=== PATIENT | male | born 1975 | race Caucasian/White ===

== ENCOUNTER 2016-06-07 02:44 | Emergency (ER) | payer MEDICAID ==
[2016-06-07] MEDS ORDERED: FAMOTIDINE INJ/PF 20 MG/2 ML SDV IV ONE (03:02)
[2016-06-07] MEDS ORDERED: DIPHENHYDRAMINE HCL 50 MG/ML VIAL IV ONE (03:02)
[2016-06-07] MEDS ORDERED: METHYLPREDNISOLONE INJ 125 MG/2 ML SDV IV ONE (03:02)
[2016-06-07] MEDS ORDERED: NORMAL SALINE 1000 ML 1,000 ML IV ONE ×3 (03:02→05:52)
[2016-06-07] MEDS ORDERED: ALBUTEROL SULFATE 0.083% NEB 2.5 MG/3 ML AMPUL NEB ONE (03:02)
[2016-06-07] MEDS ORDERED: EPINEPHRINE INJ/PF 1 MG/1 ML AMPULE IM ONE (03:03)
--- NOTE | 2016-06-07 03:08 | ER Document Report ---
ED Allergic Reaction - General Chief Complaint: Itching Stated Complaint: POSSIBLE ALLERGIC REACTION Mode of Arrival: Medic Information source: Patient Notes: Patient presents complaining of allergic reaction to unknown substance. Patient states that his symptoms started yesterday and gradually worsened this morning. Patient states that around 2:30 that he became very itchy, felt dizzy and then fell. Patient denies any loss of consciousness or chest pain. Patient does complain of some shortness of breath. Patient also reports some right upper lip swelling. TRAVEL OUTSIDE OF THE [place] IN LAST 30 DAYS: No - HPI Onset: Yesterday Onset/Duration: Worse Quality of pain: No pain Identified cause: No Skin rash / itching: Diffuse, "Hives" Swelling: Face, Lip(s) Associated symptoms: Dizziness Similar symptoms previously: No Recently seen / treated by doctor: No - Related Data Allergies/Adverse Reactions: No Known Allergies Allergy (Unverified 04/29/15 13:38) Past Medical History - General Information source: Patient - Social History Smoking Status: Never Smoker Frequency of alcohol use: None Drug Abuse: None Occupation: cable wirer Family History: Reviewed & Not Pertinent - Medical History Medical History: Negative - Past Medical History Cardiac Medical History: Denies: Hx Coronary Artery Disease, Hx Heart Attack, Hx Hypertension Pulmonary Medical History: Denies: Hx Asthma, Hx Bronchitis, Hx COPD, Hx Pneumonia Neurological Medical History: Denies: Hx Cerebrovascular Accident, Hx Seizures Endocrine Medical History: Denies: Hx Diabetes Mellitus Type 2 GI Medical History: Reports: Hx Colonoscopy. Denies: Hx Crohn's Disease Musculoskeltal Medical History: Denies Hx Arthritis Past Surgical History: Reports: Other - Rectal fistula repair - Immunizations Hx Diphtheria, Pertussis, Tetanus Vaccination: No Review of Systems - Review of Systems Constitutional: No symptoms reported. denies: Fever, Recent illness EENT: Other - Right upper lip swelling. denies: Difficulty swallowing, Throat swelling Cardiovascular: Dizziness. denies: Chest pain, Palpitations Respiratory: Short of breath. denies: Cough Gastrointestinal: No symptoms reported. denies: Nausea, Vomiting Genitourinary: No symptoms reported Male Genitourinary: No symptoms reported Musculoskeletal: No symptoms reported Skin: Rash Hematologic/Lymphatic: No symptoms reported Neurological/Psychological: No symptoms reported Physical Exam - Vital signs Vitals: Temp Pulse Resp BP Pulse Ox 98.0 F 73 18 112/71 97 06/07/16 02:55 06/07/16 02:55 06/07/16 02:55 06/07/16 02:55 06/07/16 02:55 - General General appearance: Appears well, Alert In distress: None - HEENT Head: Normocephalic Eyes: Normal Nasal: Normal Mouth/Lips: Other - Subtle swelling to right side of the upper lip Mucous membranes: Normal Pharynx: Normal. No: Tonsillar hypertrophy, Uvular edema, Potential airway comprom. Neck: Normal, Supple. No: Lymphadenopathy - Respiratory Respiratory status: No respiratory distress Chest status: Nontender Breath sounds: Normal. No: Rales, Rhonchi, Stridor, Wheezing Chest palpation: Normal - Cardiovascular Rhythm: Regular Heart sounds: S1 appreciated, S2 appreciated Murmur: No - Abdominal Inspection: Normal Distension: No distension Tenderness: Nontender Organomegaly: No organomegaly - Back Back: Normal, Nontender - Extremities General upper extremity: Normal inspection, Normal ROM General lower extremity: Normal inspection, Normal ROM - Neurological Neuro grossly intact: Yes Cognition: Normal Orientation: AAOx4 Octavio Coma Scale Eye Opening: Spontaneous [place] Coma Scale Verbal: Oriented [place] Coma Scale Motor: Obeys Commands [place] Coma Scale Total: 15 - Psychological Associated symptoms: Normal affect, Normal mood - Skin Skin Temperature: Warm Skin Moisture: Dry Skin irregularity: Rash Location of irregularity: Generalized Character of irregularity: Urticarial Course - Re-evaluation Re-evalutation: 06/07/16 03:55 RN states that prior to meds being given, patient started to complain of abdominal tenderness. Patient presently complains of abdominal pain with nausea , patient retching. Dr Chambers consulted and to bedside for examination. Lab tests ordered including UDS and EtOH. 06/07/16 04:00 to bedside for abdominal examination. Patient's heart rate continues irregular ranging from the 50s into the 80s with occasional PVCs. 06/07/16 04:33 Patient reports that abdominal cramping have resolved as well as nausea and vomiting. Patient states he feels much better. Heart rate in the 90s at this time. Patient resting on his side attempting to sleep. Patient hypotensive, additional IV fluids ordered. Swelling to lip resolved. 06/07/16 04:53 Patient heart rate in the 80s, patient continues hypotensive, second liter of IV fluids infusing repeat EKG performed. Nurse at bedside to obtain second IV site as well as to draw his labs. Dr. Chambers advised that patient status. Patient currently denies any complaints, hives resolved no facial swelling. 06/07/16 05:57 Patient sleeping, arouses easily to voice. Patient denies any complaints at present. Patient's pressure 106/59. Third liter of IV fluids infusing. Consulted again with Dr. Chambers, who returned to bedside for repeat examination, no additional testing advised this time. 06/07/16 07:21 Bedside report and handoff given to Jose JOHNSON, patient currently denies any symptoms, states he feels much better. - Vital Signs Vital signs: Temp Pulse Resp BP Pulse Ox 98.0 F 73 21 H 105/58 L 94 06/07/16 02:55 06/07/16 02:55 06/07/16 06:11 06/07/16 06:11 06/07/16 06:11 - Laboratory Result Diagrams: 06/07/16 04:58 06/07/16 04:58 Laboratory results interpreted by me: 06/07/16 06/07/16 06/07/16 04:58 04:58 06:10 WBC 23.8 H Seg Neuts % (Manual) 79 H Lymphocytes % (Manual) 11 L Abs Neuts (Manual) 20.0 H Potassium 3.3 L BUN 24 H Glucose 201 H Urine Protein 100 H Discharge - Discharge Prescriptions: Epinephrine [Epipen 2-Arian] 0.3 mg IM ASDIR PRN #1 unit PRN Reason: Prednisone [Deltasone 20 mg Tablet] 3 tab PO DAILY 4 Days
[2016-06-07] MEDS ORDERED: ONDANSETRON HCL INJ/PF 4 MG/2 ML SDV IV ONE (03:49)
[2016-06-07] MEDS ORDERED: ONDANSETRON HCL INJ/PF 4 MG/2 ML SDV ONE (03:52)
[2016-06-07 05:15] LABS: HEMATOCRIT 41.8 % (37.9-51.0); HEMOGLOBIN 14.1 g/dL (13.5-17.0); HGB HCT DIFFERENCE 0.5; MEAN CORPUSCULAR HEMOGLOBIN 30.5 pg (27.0-33.4); MEAN CORPUSCULAR HGB CONC 33.7 g/dL (32.0-36.0); MEAN CORPUSCULAR VOLUME 90 fl (80-97); RED BLOOD COUNT 4.62 10^6/uL (4.35-5.55); RED CELL DISTRIBUTION WIDTH 12.8 % (11.5-14.0); WHITE BLOOD COUNT 23.8 10^3/uL (4.0-10.5)
[2016-06-07 05:35] LABS: ALANINE AMINOTRANSFERASE 43 U/L (21-72); ALBUMIN 3.7 g/dL (3.5-5.0); ALKALINE PHOSPHATASE 63 U/L (38-126); ANION GAP 14 (5-19); ASPARTATE AMINO TRANSFERASE 25 U/L (17-59); BILIRUBIN,DIRECT 0.2 mg/dL (0.0-0.4); BILIRUBIN,TOTAL 0.9 mg/dL (0.2-1.3); BLOOD UREA NITROGEN 24 mg/dL (7-20); CALCIUM 8.5 mg/dL (8.4-10.2); CARBON DIOXIDE 22 mmol/L (22-30); CHLORIDE 106 mmol/L (98-107); CREATINE KINASE 81 U/L (55-170); CREATININE RESULT 0.89 mg/dL (0.52-1.25); GLUCOSE 201 mg/dL (75-110); LIPASE 89.8 U/L (23-300); POTASSIUM 3.3 mmol/L (3.6-5.0); SODIUM 141.6 mmol/L (137-145); TOTAL PROTEIN 6.5 g/dL (6.3-8.2)
[2016-06-07 05:40] LABS: ALCOHOL < 10 mg/dL (NONE DETECTED)
[2016-06-07 05:41] LABS: BAND NEUTROPHILS % (MANUAL) 5 % (3-5); BASOPHILS % (MANUAL) 0 % (0-2); EOSINOPHILS % (MANUAL) 0 % (0-6); LYMPHOCYTES % (MANUAL) 11 % (13-45); TOTAL CELLS COUNTED 100
[2016-06-07 05:42] LABS: POIKILOCYTOSIS SLIGHT
[2016-06-07 05:43] LABS: PLATELET CLUMPS PRESENT
[2016-06-07 05:44] LABS: CREATINE KINASE MB 0.96 ng/mL (<4.55)
[2016-06-07 05:49] LABS: TROPONIN I < 0.012 ng/mL
[2016-06-07 06:38] LABS: URINE BARBITURATES SCREEN NEGATIVE; URINE METHADONE SCREEN NEGATIVE; URINE OPIATES LOW NEGATIVE; URINE PHENCYCLIDINE SCREEN NEGATIVE
[2016-06-07 06:43] LABS: APPEARANCE,URINE SLIGHTLY-CLOUDY; BILIRUBIN,URINE NEGATIVE (NEGATIVE); GLUCOSE, URINE NEGATIVE (NEGATIVE); KETONES,URINE NEGATIVE (NEGATIVE); LEUKOCYTE ESTERASE,URINE NEGATIVE (NEGATIVE); NITRITE,URINE NEGATIVE (NEGATIVE); PROTEIN,URINE 100 mg/dL (NEGATIVE); URINE SPECIFIC GRAVITY 1.032; UROBILINOGEN,URINE NEGATIVE mg/dL (<2.0)
[2016-06-07 08:32] LABS: HEMATOCRIT 39.8 % (37.9-51.0); HEMOGLOBIN 13.6 g/dL (13.5-17.0); MEAN CORPUSCULAR HEMOGLOBIN 30.7 pg (27.0-33.4); MEAN CORPUSCULAR HGB CONC 34.1 g/dL (32.0-36.0); MEAN CORPUSCULAR VOLUME 90 fl (80-97); RED BLOOD COUNT 4.43 10^6/uL (4.35-5.55); RED CELL DISTRIBUTION WIDTH 12.9 % (11.5-14.0)
[2016-06-07 08:59] LABS: BASOPHILS % (MANUAL) 0 % (0-2); EOSINOPHILS % (MANUAL) 0 % (0-6); LYMPHOCYTES % (MANUAL) 5 % (13-45); RBC MORPHOLOGY COMMENT NORMO-CYTIC/CHROMIC; TOTAL CELLS COUNTED 100
[2016-06-07 10:20] VITALS: BP 117/97
--- NOTE | 2016-06-07 10:22 | EKG REPORT ---
SEVERITY:- ABNORMAL ECG - SINUS BRADYCARDIA MULTIPLE ATRIAL PREMATURE COMPLEXES : Confirmed by: Amrik Mariee 07-Jun-2016 10:22:36
--- NOTE | 2016-06-07 10:22 | EKG REPORT ---
SEVERITY:- NORMAL ECG - SINUS RHYTHM : Confirmed by: Amrik Mariee 07-Jun-2016 10:22:29
== END 2016-06-07 10:23 | disposition home or self-care (01) ==
LOC: ER 02:44
DX: E86.0 Dehydration (principal); T78.40XA Allergy, unspecified, initial encounter; R06.02 Shortness of breath; R22.0 Localized swelling, mass and lump, head
CPT/HCPCS: 93005; 94640; 99284; 96372; 96361; 96374; 96375; 36415; 82553; 80307 ×2; 82550; 83690; 85025; 80053; 81001; 84484; 71010; 93010; J1200; J0171; J2930; J2405; J7030; S0028

== ENCOUNTER 2016-08-10 21:23 | Emergency (ER) | payer MEDICAID ==
[2016-08-10 22:26] LABS: ABSOLUTE BASOPHILS # (AUTO) 0.1 10^3/uL (0.0-0.2); ABSOLUTE EOSINOPHILS # (AUTO) 0.3 10^3/uL (0.0-0.6); ABSOLUTE LYMPHOCYTES (AUTO) 2.7 10^3/uL (0.5-4.7); ABSOLUTE MONOCYTES (AUTO) 1.1 10^3/uL (0.1-1.4); ABSOLUTE NEUT (AUTO) 3.6 10^3/uL (1.7-8.2); BASOPHILS % (AUTO) 0.8 % (0-2); EOSINOPHILS % (AUTO) 3.6 % (0-6); HEMATOCRIT 41.5 % (37.9-51.0); HEMOGLOBIN 13.8 g/dL (13.5-17.0); HGB HCT DIFFERENCE -0.1; LYMPHOCYTES % (AUTO) 34.5 % (13-45); MEAN CORPUSCULAR HEMOGLOBIN 30.2 pg (27.0-33.4); MEAN CORPUSCULAR HGB CONC 33.3 g/dL (32.0-36.0); MEAN CORPUSCULAR VOLUME 91 fl (80-97); MONOCYTES % (AUTO) 14.2 % (3-13); RED BLOOD COUNT 4.58 10^6/uL (4.35-5.55); RED CELL DISTRIBUTION WIDTH 12.3 % (11.5-14.0); SEGMENTED NEUTROPHILS % (AUTO) 46.9 % (42-78); WHITE BLOOD COUNT 7.8 10^3/uL (4.0-10.5)
[2016-08-10 22:44] LABS: ALANINE AMINOTRANSFERASE 67 U/L (21-72); ALBUMIN 4.2 g/dL (3.5-5.0); ALKALINE PHOSPHATASE 83 U/L (38-126); ANION GAP 14 (5-19); ASPARTATE AMINO TRANSFERASE 52 U/L (17-59); BILIRUBIN,DIRECT 0.3 mg/dL (0.0-0.4); BLOOD UREA NITROGEN 17 mg/dL (7-20); CALCIUM 9.2 mg/dL (8.4-10.2); CARBON DIOXIDE 26 mmol/L (22-30); CHLORIDE 104 mmol/L (98-107); CREATININE RESULT 1.08 mg/dL (0.52-1.25); GLUCOSE 95 mg/dL (75-110); LIPASE 132.9 U/L (23-300); POTASSIUM 3.6 mmol/L (3.6-5.0); SODIUM 144.2 mmol/L (137-145); TOTAL PROTEIN 7.8 g/dL (6.3-8.2)
[2016-08-10] MEDS ORDERED: SIMETHICONE 80 MG TAB.CHEW PO ONE (22:47)
[2016-08-10] MEDS ORDERED: NORMAL SALINE 1000 ML 1,000 ML IV ONE (22:47)
[2016-08-10] MEDS ORDERED: MORPHINE SULFATE 10 MG/ML INJ IV PRN (22:47)
--- NOTE | 2016-08-10 22:56 | RADIOLOGY REPORT (SQ) ---
EXAM DESCRIPTION: KUB/ABDOMEN (SINGLE VIEW) COMPLETED DATE/TIME: 08/10/2016 10:48 pm REASON FOR STUDY: eval sbo COMPARISON: None. NUMBER OF VIEWS: One view. TECHNIQUE: Supine radiographic image of the abdomen acquired. LIMITATIONS: None. FINDINGS: BOWEL GAS PATTERN: Normal bowel gas pattern. No dilated loops. Moderate colonic stool bur den. CALCIFICATIONS: No suspicious calcifications. SOFT TISSUES: No gross mass or suggestion of organomegaly. HARDWARE: None in the abdomen. BONES: No acute fracture. No worrisome bone lesions. OTHER: No other significant finding. IMPRESSION: NO RADIOGRAPHIC EVIDENCE FOR ACUTE ABDOMINAL DISEASE. Moderate colonic stool burden TECHNICAL DOCUMENTATION: JOB ID: [id number] [employer]- All Rights Reserved
--- NOTE | 2016-08-11 00:07 | ER Document Report ---
ED General - General Chief Complaint: Abdominal Pain Stated Complaint: DIARRHEA Time Seen by Provider: 08/10/16 21:41 Notes: Patient is a 41-year-old male with past medical history of a rectocutaneous fistula without history of Crohn's who presents with 2 days of abdominal bloating and diarrhea. States that the diarrhea has stopped it. Took Imodium regularly over the last 2 days but now he feels extremely distended, like he needs to pass gas or have a bowel movement. Does describe a constant, pressure- like pain. Notes that he has continued to pass gas at home and that this does improve the bloating but then it recurs. Nothing worsens the pain. Notes nausea without vomiting. No history of similar symptoms in the past. Denies any history of abdominal surgeries or bowel obstructions. He denies any chest pain or shortness of breath. No fever or constitutional symptoms. TRAVEL OUTSIDE OF THE [place] IN LAST 30 DAYS: No - Related Data Allergies/Adverse Reactions: No Known Allergies Allergy (Unverified 04/29/15 13:38) Past Medical History - General Information source: Patient - Social History Smoking Status: Never Smoker Frequency of alcohol use: None Drug Abuse: None Lives with: Family Family History: Reviewed & Not Pertinent Patient has suicidal ideation: No Patient has homicidal ideation: No - Past Medical History Cardiac Medical History: Denies: Hx Coronary Artery Disease, Hx Heart Attack, Hx Hypertension Pulmonary Medical History: Denies: Hx Asthma, Hx Bronchitis, Hx COPD, Hx Pneumonia Neurological Medical History: Denies: Hx Cerebrovascular Accident, Hx Seizures Endocrine Medical History: Denies: Hx Diabetes Mellitus Type 2 Renal/ Medical History: Denies: Hx Peritoneal Dialysis GI Medical History: Reports: Hx Colonoscopy. Denies: Hx Crohn's Disease Musculoskeltal Medical History: Denies Hx Arthritis Past Surgical History: Reports: Other - Rectal fistula repair - Immunizations Hx Diphtheria, Pertussis, Tetanus Vaccination: No Review of Systems - Review of Systems Notes: Constitutional: Negative for fever. HENT: Negative for sore throat. Eyes: Negative for visual changes. Cardiovascular: Negative for chest pain. Respiratory: Negative for shortness of breath. Gastrointestinal: Positive for abdominal pain and nausea Genitourinary: Negative for dysuria. Musculoskeletal: Negative for back pain. Skin: Negative for rash. Neurological: Negative for headaches, weakness or numbness. 10 point ROS negative except as marked above and in HPI. Physical Exam - Vital signs Vitals: Temp Pulse Resp BP Pulse Ox 98.2 F 76 18 129/89 H 97 08/10/16 21:27 08/10/16 21:27 08/10/16 21:27 08/10/16 21:27 08/10/16 21:27 Interpretation: Normal Notes: PHYSICAL EXAMINATION: GENERAL: Well-appearing, well-nourished and in no acute distress. HEAD: Atraumatic, normocephalic. EYES: Pupils equal round and reactive to light, extraocular movements intact, sclera anicteric, conjunctiva are normal. ENT: nares patent, oropharynx clear without exudates. Moist mucous membranes. NECK: Normal range of motion, supple without lymphadenopathy LUNGS: Breath sounds clear to auscultation bilaterally and equal. No wheezes rales or rhonchi. HEART: Regular rate and rhythm without murmurs ABDOMEN: Soft, obese abdomen. No focal tenderness, rebound or guarding. Bowel sounds are present. EXTREMITIES: Normal range of motion, no pitting or edema. No cyanosis. NEUROLOGICAL: No focal neurological deficits. Moves all extremities spontaneously and on command. PSYCH: Normal mood, normal affect. SKIN: Warm, Dry, normal turgor, no rashes or lesions noted. Course - Re-evaluation Re-evalutation: 08/11/16 00:07 Patient presents with diffuse abdominal cramping and bloating with feeling of being in need of having a bowel movement. Patient did recently have diarrhea and was taking large quantities of loperamide. His abdominal exam is overall benign without any focal tenderness, rebound or guarding. Labs unremarkable. KUB does demonstrate significant colonic stool burden without evidence of a small bowel obstruction. I suspect patient has taken too much loperamide and now has significant rebound constipation. I do not suspect an acute bowel obstruction, mesenteric ischemia, bowel perforation, volvulus, acute biliary pathology, or acute diverticulitis or appendicitis based on exam and history. At this time will discharge with return precautions and follow-up recommendations. Verbal discharge instructions given a the bedside and opportunity for questions given. Medication warnings reviewed. Patient is in agreement with this plan and has verbalized understanding of return precautions and the need for primary care follow-up in the next 24-72 hours. - Vital Signs Vital signs: Temp Pulse Resp BP Pulse Ox 98.2 F 72 18 126/85 H 99 06/27/17 21:27 08/11/16 00:34 08/11/16 00:34 08/11/16 00:34 08/11/16 00:34 - Laboratory Result Diagrams: 08/10/16 22:10 08/10/16 22:10 Laboratory results interpreted by me: 08/10/16 22:10 Monocytes % 14.2 H - Diagnostic Test Radiology reviewed: Image reviewed, Reports reviewed Radiology results interpreted by me: 08/11/16 02:04 KUB: No evidence of obstruction. Significant colonic stool burden Discharge - Discharge Clinical Impression: Abdominal pain Qualifiers: Abdominal location: generalized Qualified Code(s): R10.84 - Generalized abdominal pain Condition: Good Disposition: HOME, SELF-CARE Additional Instructions: You have been seen in the Emergency Department (ED) for abdominal pain. Your evaluation did not identify a clear cause of your symptoms but was generally reassuring. Your x-ray does show a significant amount of constipation which may be due to recently using Imodium. For your constipation: You should take 8 caps of MiraLAX and placed in 1 liter of Gatorade. Drink one half of the solution and wait 4 hours. If you do not have a bowel movement take the remaining half of the solution. Please follow up with your doctor as soon as possible regarding today's emergent visit and the symptoms that are bothering you. Return to the ED if your abdominal pain worsens or fails to improve, you develop bloody vomiting, bloody diarrhea, you are unable to tolerate fluids due to vomiting, fever greater than 101, or other symptoms that concern you. Referrals: LETA ORTA MD [Primary Care Provider] - Follow up as needed
[2016-08-11 00:35] VITALS: BP 126/85
== END 2016-08-11 00:34 | disposition home or self-care (01) ==
LOC: ER 21:23
DX: R10.84 Generalized abdominal pain (principal); R11.0 Nausea; R19.7 Diarrhea, unspecified; R14.0 Abdominal distension (gaseous)
CPT/HCPCS: 99284; 96374; 36415; 83690; 85025; 80053; 74000; J2270; J7030

== ENCOUNTER 2017-02-08 17:55 | Emergency (ER) | payer MEDICAID ==
[2017-02-08] MEDS ORDERED: IPRATROPIUM/ALBUTEROL 0.5-2.5 MG/3 ML AMPUL NEB ONE (19:12)
[2017-02-08] MEDS ORDERED: PREDNISONE 20 MG TABLET PO ONE (19:12)
--- NOTE | 2017-02-08 19:12 | ER Document Report ---
ED Respiratory Problem - General Chief Complaint: Cough Stated Complaint: COUGH Time Seen by Provider: 02/08/17 18:55 Notes: Patient is a 41 year old male who presents to the ED complaining of a nonproductive cough and shortness of breath for three days. Admit sot wheezing, denies tobacco use, h/o asthma or COPD. Denies any fevers, chills, chest pain. TRAVEL OUTSIDE OF THE [place] IN LAST 30 DAYS: No - Related Data Allergies/Adverse Reactions: No Known Allergies Allergy (Verified 12/16/16 08:16) Past Medical History - Social History Smoking Status: Never Smoker Chew tobacco use (# tins/day): No Frequency of alcohol use: None Drug Abuse: None Family History: Reviewed & Not Pertinent Patient has suicidal ideation: No Patient has homicidal ideation: No - Past Medical History Cardiac Medical History: Denies: Hx Coronary Artery Disease, Hx Heart Attack, Hx Hypertension Pulmonary Medical History: Denies: Hx Asthma, Hx Bronchitis, Hx COPD, Hx Pneumonia Neurological Medical History: Denies: Hx Cerebrovascular Accident, Hx Seizures Endocrine Medical History: Denies: Hx Diabetes Mellitus Type 2 Renal/ Medical History: Denies: Hx Peritoneal Dialysis GI Medical History: Reports: Hx Colonoscopy. Denies: Hx Crohn's Disease Musculoskeltal Medical History: Denies Hx Arthritis Past Surgical History: Reports: Other - Rectal fistula repair - Immunizations Hx Diphtheria, Pertussis, Tetanus Vaccination: No Review of Systems - Review of Systems Constitutional: No symptoms reported Cardiovascular: No symptoms reported Respiratory: See HPI Gastrointestinal: No symptoms reported -: Yes All other systems reviewed and negative Physical Exam - Vital signs Vitals: Temp Pulse Resp BP Pulse Ox 98.7 F 91 20 122/81 95 02/08/17 18:14 02/08/17 18:14 02/08/17 18:14 02/08/17 18:14 02/08/17 18:14 - Notes Notes: PHYSICAL EXAM GENERAL: Alert, interacts well. HEAD: Normocephalic, atraumatic. EYES: Pupils equal, round, and reactive to light. Extraocular movements intact. ENT: Oral mucosa moist, tongue midline. NECK: Full range of motion. Supple. Trachea midline. LUNGS: Diffuse wheezes and rhonchi. No respiratory distress. HEART: Regular rate and rhythm. No murmurs, gallops, or rubs. EXTREMITIES: Moves all 4 extremities spontaneously. No edema, radial and dorsalis pedis pulses 2/4 bilaterally. No cyanosis. NEUROLOGICAL: Alert and oriented x4. Normal speech. PSYCH: Normal affect, normal mood. SKIN: Warm, dry, normal turgor. No rashes or lesions noted. Course - Re-evaluation Re-evalutation: 02/09/17 01:59 Patient presents with nonproductive cough likely consistent with viral bronchitis. Mild wheezing at time of presentation but vitals do not show significant hypoxemia or tachypnea. No retractions. Patient did clinically improve after receiving nebulizers here in the emergency department. Chest x- ray without evidence of an acute pneumonia. Patient able to ambulate without any respiratory distress, satting 98% on room air. Based on patient's overall reassuring assessment, I believe they are stable for outpatient management with steroids. I do not suspect an acute alternative pathology at this time based on history and exam including acute pulmonary embolus, ACS, pneumothorax, or aortic dissection. At this time will discharge with return precautions and follow-up recommendations. Verbal discharge instructions given a the bedside and opportunity for questions given. Medication warnings reviewed. Patient is in agreement with this plan and has verbalized understanding of return precautions and the need for primary care follow-up in the next 24-72 hours. - Vital Signs Vital signs: Temp Pulse Resp BP Pulse Ox 98.7 F 91 17 125/76 93 02/08/17 18:14 02/08/17 18:14 02/08/17 20:54 02/08/17 20:54 02/08/17 20:54 - Diagnostic Test Radiology reviewed: Image reviewed, Reports reviewed Discharge - Discharge Clinical Impression: Bronchitis Condition: Good Disposition: HOME, SELF-CARE Additional Instructions: Please purchase pseudophedrine which is available behind the counter in the pharmacy. BRONCHITIS: You have acute bronchitis. This disease is an infection or inflammation of the air passageways in your lungs. Symptoms usually include cough, low grade fever, shortness of breath, and wheezing. The cough usually persists for a couple of weeks. Most cases of bronchitis get better without antibiotics. We prescribe antibiotics when we believe bacteria are damaging your airways, or if there's high risk the bronchitis will worsen into pneumonia. Increase your fluid intake. A cool mist humidifier may make your lungs more comfortable. An expectorant (cough medicine that loosens phlegm) can help. If you smoke, STOP!!! Recovery from bronchitis can be somewhat slow, but you should see improvement within a day or two. Repeated episodes of bronchitis may result in lung damage -- for example, chronic bronchitis, recurrent pneumonias, or emphysema. Call the doctor if you develop increasing fever, shortness of breath, chest pain, bloody sputum, or otherwise worsen. If you have not improved at all after several days, contact the physician. BRONCHITIS WITH BRONCHOSPASM (WHEEZING): You have bronchitis with bronchospasm (wheezing). Sometimes people develop wheezing with a chest cold. This occurs either because of an underlying tendency toward asthma or because the virus itself irritates the bronchial tubes. This irritation causes cough, shortness of breath, and wheezing. Emergency treatment of bronchospasm may include adrenaline shots or bronchodilator aerosol. You may feel lightheaded and have a rapid pulse for an hour or two. Rest and get plenty of fluids. At home, we'll treat you with a bronchodilator inhaler. Corticosteroids may be required for some patients. Until you recover, avoid chemical fumes, dusts, pollens, and exercising in very cold or dry air. If you smoke, stop now! Most cases of bronchitis get better without antibiotics. We prescribe antibiotics when we believe bacteria are damaging your airways, or if there's high risk the bronchitis will worsen into pneumonia. Increase your fluid intake. A cool mist humidifier may make your lungs more comfortable. An expectorant (cough medicine that loosens phlegm) can help. Repeated episodes of bronchitis and bronchospasm may result in lung damage -- for example, chronic bronchitis, recurrent pneumonias, or emphysema. If you develop a fever, increased wheezing, chest pain, or severe shortness of breath, you should contact the doctor immediately. DECONGESTANT MEDICATION: A decongestant medicine has been prescribed. Often this medicine is combined in the same tablet with an antihistamine or expectorant. This type of medicine is helpful in treating a bad cold or sinus condition, as well as in treatment of the nasal congestion of hay fever. It is not of much benefit for lung infections. Decongestant medicines are related to stimulants. They can cause an increase in blood pressure and heart rate. Persons with heart disease and high blood pressure should not take decongestants without discussing this with the physician. If you develop palpitations, chest pain, headache, or tremors, stop the medicine and consult your physician. COUGH-SUPPRESSANT & EXPECTORANT MEDICATION: You are to use a cough medication as needed for relief of symptoms. This medicine is a combination of an expectorant (to make the mucous thinner and more easily "coughed up") and a cough suppressant (to reduce the frequency of coughing). The cough-suppressant medicine is related to narcotics. You may experience mild nausea and sleepiness. Some patients who are very sensitive to narcotics may have stomach pain from this medicine. Taking the medicine with food reduces these side effects. Do not drive or work with machinery until you know how this medicine affects you. The expectorant should have no side effects. Iodine-containing expectorants (such as organidin) should not be taken by persons with active thyroid disease unless approved by your doctor. Call the doctor if you develop shortness of breath, hives, rash, itching, lightheadedness, or severe nausea and vomiting. INHALED BRONCHODILATORS: You have received a treatment of and/or prescription for an inhaled bronchodilator -- a medication which stimulates the airways in the lung to dilate. This improves the flow of air in asthma, bronchitis, and emphysema. These medicines have some similarity to adrenaline, and can cause similar side effects: shakiness, racing heart, and a sense of nervousness. These side effects decrease with time. Contact your doctor if these side effects are severe. Do not over-use the medicine. Too-frequent use of the inhaler may make it ineffective. Call your doctor if the inhaler is not controlling your symptoms at the prescribed doses. STEROID MEDICATION: You have been given an injection of or oral medicine of the cortisone/ steroid class. This medication is used to control inflammation or allergy. Min t is usually only given for a short period of time, until the acute process subsides. There are usually no side effects from short-term use of cortisone-like medications. Some persons feel an increased sense of well-being and are not sleepy at bedtime. Long-term use of cortisone medications is best avoided, unless required for a severe condition. If your condition does not remit, or relapses after the course of corticosteroid medication, you should consult your physician. USE OF ACETAMINOPHEN (Tylenol): Acetaminophen may be taken for pain relief or fever control. It's much safer than aspirin, offering a wider range of "safe" dosages. It is safe during . Some brand names are Tylenol, Panadol, Datril, Anacin 3, Tempra, and Liquiprin. Acetaminophen can be repeated every four hours. The following are maximum recommended dosages: >89 pounds or adults 650 mg to 900 mg Acetaminophen can be repeated every four hours. Maximum dose not to exceed 4000 mg a day. SMOKING: If you smoke, you should stop smoking. The tar and chemicals in cigarette smoke are harmful. Smoking has been shown to cause: emphysema chronic bronchitis lung cancer mouth and throat cancer stomach and pancreas cancer premature aging defects In addition, smoking increases ear and lung infections in children of smokers. FOLLOW-UP CARE: If you have been referred to a physician for follow-up care, call the physician s office for an appointment as you were instructed or within the next two days. If you experience worsening or a significant change in your symptoms, notify the physician immediately or return to the Emergency Department at any time for re-evaluation. Prescriptions: Albuterol Sulfate [Proair HFA Inhalation Aerosol 8.5 gm MDI] 2 puff IH Q4H PRN # 1 mdi PRN Reason: Prednisone [Deltasone 20 mg Tablet] 3 tab PO DAILY 5 Days tablet Referrals: [facility] [Provider Group] - Follow up as needed
[2017-02-08] MEDS: ALBUTEROL SULFATE 0.083% NEB 2.5 MG/3 ML AMPUL NEB SCH ×2 (19:20→19:54)
--- NOTE | 2017-02-08 20:18 | RADIOLOGY REPORT (SQ) ---
EXAM DESCRIPTION: CHEST PA/LAT COMPLETED DATE/TIME: 02/08/2017 7:49 pm REASON FOR STUDY: cough, shortness of breath COMPARISON: 02/10/2015 EXAM PARAMETERS: NUMBER OF VIEWS: two views TECHNIQUE: Digital Frontal and Lateral radiographic views of the chest acquired. RADIATION DOSE: NA LIMITATIONS: none FINDINGS: LUNGS AND PLEURA: No acute opacities, masses or pneumothorax. No pleural effusion. MEDIASTINUM AND HILAR STRUCTURES: Stable. HEART AND VASCULAR STRUCTURES: Heart normal size. No evidence for failure. BONES: No acute findings. HARDWARE: None in the chest. OTHER: No other significant finding. IMPRESSION: No acute findings. TECHNICAL DOCUMENTATION: JOB ID: [id number] [place]-[id number] 2010 [employer]- All Rights Reserved
[2017-02-08] MEDS ORDERED: PSEUDOEPHEDRINE HCL 30 MG TABLET PO ONE (20:24)
[2017-02-08 20:56] VITALS: BP 125/76
== END 2017-02-08 21:03 | disposition home or self-care (01) ==
LOC: ER 17:55
DX: J40 Bronchitis, not specified as acute or chronic (principal); R05 Cough; R06.02 Shortness of breath
CPT/HCPCS: 94640 ×2; 99283; 71020; J7512; J7620

== ENCOUNTER 2017-02-21 20:35 | Emergency (ER) | payer MEDICAID ==
[2017-02-21 20:46] VITALS: BP 111/67
[2017-02-21] MEDS ORDERED: DIPHENHYDRAMINE HCL 25 MG CAPSULE PO ONE (22:22)
[2017-02-21] MEDS ORDERED: PSEUDOEPHEDRINE HCL 30 MG TABLET PO ONE (22:22)
[2017-02-21] MEDS ORDERED: ALBUTEROL SULFATE 0.083% NEB 2.5 MG/3 ML AMPUL NEB ONE (22:22)
--- NOTE | 2017-02-21 22:22 | ER Document Report ---
ED Respiratory Problem - General Chief Complaint: Cough Stated Complaint: COUGH Time Seen by Provider: 02/21/17 21:57 Notes: Patient is a 41-year-old male who returns emergency department complaining of cough. Patient was seen here approximately 2-3 weeks ago and was diagnosed with viral bronchitis. Patient states that his shortness of breath and chest pain went away but now has a dry nonproductive cough. Patient states that the albuterol inhaler helped but now has not helped the cough. Has not taken anything else [id number] for it. Following up with primary care tomorrow. Denies any fevers. TRAVEL OUTSIDE OF THE [place] IN LAST 30 DAYS: No - Related Data Allergies/Adverse Reactions: No Known Allergies Allergy (Verified 12/16/16 08:16) Past Medical History - Social History Smoking Status: Unknown if Ever Smoked Family History: Reviewed & Not Pertinent Patient has suicidal ideation: No Patient has homicidal ideation: No - Past Medical History Cardiac Medical History: Denies: Hx Coronary Artery Disease, Hx Heart Attack, Hx Hypertension Pulmonary Medical History: Denies: Hx Asthma, Hx Bronchitis, Hx COPD, Hx Pneumonia Neurological Medical History: Denies: Hx Cerebrovascular Accident, Hx Seizures Endocrine Medical History: Denies: Hx Diabetes Mellitus Type 2 Renal/ Medical History: Denies: Hx Peritoneal Dialysis GI Medical History: Reports: Hx Colonoscopy. Denies: Hx Crohn's Disease Musculoskeltal Medical History: Denies Hx Arthritis Past Surgical History: Reports: Other - Rectal fistula repair - Immunizations Hx Diphtheria, Pertussis, Tetanus Vaccination: No Review of Systems - Review of Systems Constitutional: No symptoms reported EENT: No symptoms reported Cardiovascular: No symptoms reported Respiratory: See HPI Gastrointestinal: No symptoms reported -: Yes All other systems reviewed and negative Physical Exam - Vital signs Vitals: Temp Pulse Resp BP Pulse Ox 98.3 F 89 18 111/67 98 02/21/17 20:44 02/21/17 20:44 02/21/17 20:44 02/21/17 20:44 02/21/17 20:44 - Notes Notes: PHYSICAL EXAM GENERAL: Alert, interacts well. HEENT: NCAT, pale conjunctiva, extraocular movements intact, pupils PERRL. external ear normal, no evidence of external auditory canal tenderness, blood/ drainage, cerumen impaction, TM intact without evidence of effusion, bulging, injection, MMM, Uvula midline. Airway patent. No evidence of tonsillar enlargement, peritonsillar abscess, retropharyngeal abscess. LUNGS: Clear to auscultation bilaterally, no wheezes, rales, or rhonchi. No respiratory distress. HEART: Regular rate and rhythm. No murmurs, gallops, or rubs. EXTREMITIES: Moves all 4 extremities spontaneously. No edema, radial and dorsalis pedis pulses 2/4 bilaterally. No cyanosis. NEUROLOGICAL: Alert and oriented x4. Normal speech. PSYCH: Normal affect, normal mood. SKIN: Warm, dry, normal turgor. No rashes or lesions noted. Course - Re-evaluation Re-evalutation: 02/22/17 00:26 Presentation is most consistent with a viral upper respiratory infection. Patient is overall well appearance, vitals within normal limits, well-hydrated. Patient denies any headache, neck pain, and has no evidence of meningismus on examination. Lungs are clear bilaterally. No evidence of respiratory distress. X-ray without any evidence of developing pneumonia. Based on clinical exam and history, I do not suspect an acute pneumonia, meningitis, strep pharyngitis, or an acute encephalitis. Patient symptomatically improved after giving him cough suppressants and Cepacol lozenge. No laboratory or imaging testing is indicated at this time. Will discharge patient with return precautions and followup recommendations. They are in agreement this plan have verbalized understanding return precautions. - Vital Signs Vital signs: Temp Pulse Resp BP Pulse Ox 98.3 F 89 18 111/67 98 02/21/17 20:44 02/21/17 20:44 02/21/17 20:44 02/21/17 20:44 02/21/17 20:44 - Diagnostic Test Radiology reviewed: Image reviewed, Reports reviewed Discharge - Discharge Clinical Impression: Cough Condition: Good Disposition: HOME, SELF-CARE Instructions: Upper Respiratory Illness ([facility]) Additional Instructions: Please be sure to follow-up with your primary care doctor tomorrow as scheduled. Prescriptions: Benzonatate [Tessalon Perles 100 mg Capsule] 100 mg PO Q8HP PRN #40 capsule PRN Reason:
--- NOTE | 2017-02-21 23:11 | RADIOLOGY REPORT (SQ) ---
EXAM DESCRIPTION: CHEST PA/LAT COMPLETED DATE/TIME: 02/21/2017 10:36 pm REASON FOR STUDY: cough COMPARISON: Chest x-ray 02/08/2017. EXAM PARAMETERS: NUMBER OF VIEWS: two views TECHNIQUE: Digital Frontal and Lateral radiographic views of the chest acquired. RADIATION DOSE: NA LIMITATIONS: none FINDINGS: LUNGS AND PLEURA: No consolidation, pneumothorax or pleural effusion. MEDIASTINUM AND HILAR STRUCTURES: No masses or contour abnormalities. HEART AND VASCULAR STRUCTURES: Heart normal size. No evidence for failure. BONES: No acute findings. HARDWARE: None in the chest. IMPRESSION: No acute radiographic finding in the chest. TECHNICAL DOCUMENTATION: JOB ID: [id number] [place]-[id number] 2010 [employer]- All Rights Reserved
[2017-02-21] MEDS ORDERED: BENZOCAINE/MENTHOL SORE THROAT LOZENGE BUCCAL ONE (23:30)
[2017-02-21] MEDS ORDERED: CODEINE SULF 15 MG TABLET PO ONE (23:31)
== END 2017-02-22 00:38 | disposition home or self-care (01) ==
LOC: ER 20:35
DX: R05 Cough (principal)
CPT/HCPCS: 94640; 99283; 71046; J3490 ×2

== ENCOUNTER 2017-05-04 16:51 | Emergency (ER) | payer MEDICAID ==
[2017-05-04] MEDS ORDERED: NORMAL SALINE 1000 ML 1,000 ML IV ONE (18:39)
[2017-05-04] MEDS ORDERED: ONDANSETRON HCL INJ/PF 4 MG/2 ML SDV IV ONE (18:39)
[2017-05-04] MEDS ORDERED: MORPHINE SULFATE 10 MG/ML INJ IV ONE (18:39)
--- NOTE | 2017-05-04 18:40 | ER Document Report ---
ED Medical Screen (RME) - General Chief Complaint: Post Surgical Pain Stated Complaint: SURGERY COMPLICATION Time Seen by Provider: 05/04/17 18:39 Mode of Arrival: Ambulatory Information source: Patient Notes: hx of rectal fistula with multiple infections and operations. was operated on by [facility] last week. no has increasing pain TRAVEL OUTSIDE OF THE [place] IN LAST 30 DAYS: No - Related Data Allergies/Adverse Reactions: No Known Allergies Allergy (Verified 05/04/17 18:14) Past Medical History - Social History Chew tobacco use (# tins/day): No Frequency of alcohol use: None Drug Abuse: None - Past Medical History Cardiac Medical History: Denies: Hx Coronary Artery Disease, Hx Heart Attack, Hx Hypertension Pulmonary Medical History: Denies: Hx Asthma, Hx Bronchitis, Hx COPD, Hx Pneumonia Neurological Medical History: Denies: Hx Cerebrovascular Accident, Hx Seizures Endocrine Medical History: Denies: Hx Diabetes Mellitus Type 2 Renal/ Medical History: Denies: Hx Peritoneal Dialysis GI Medical History: Reports: Hx Colonoscopy. Denies: Hx Crohn's Disease Musculoskeltal Medical History: Denies Hx Arthritis Past Surgical History: Reports: Hx Rectal Surgery - fistulectomy, Other - Rectal fistula repair - Immunizations Hx Diphtheria, Pertussis, Tetanus Vaccination: No Physical Exam - Vital signs Vitals: Temp Pulse Resp BP Pulse Ox 98.7 F 66 18 125/72 96 05/04/17 17:12 05/04/17 17:12 05/04/17 17:12 05/04/17 17:12 05/04/17 17:12 Course - Vital Signs Vital signs: Temp Pulse Resp BP Pulse Ox 98.7 F 66 18 125/72 96 05/04/17 17:12 05/04/17 17:12 05/04/17 17:12 05/04/17 17:12 05/04/17 17:12
[2017-05-04 19:37] LABS: ABSOLUTE BASOPHILS # (AUTO) 0.1 10^3/uL (0.0-0.2); ABSOLUTE EOSINOPHILS # (AUTO) 0.2 10^3/uL (0.0-0.6); ABSOLUTE LYMPHOCYTES (AUTO) 3.2 10^3/uL (0.5-4.7); ABSOLUTE MONOCYTES (AUTO) 0.9 10^3/uL (0.1-1.4); ABSOLUTE NEUT (AUTO) 3.9 10^3/uL (1.7-8.2); BASOPHILS % (AUTO) 0.7 % (0-2); EOSINOPHILS % (AUTO) 2.9 % (0-6); HEMATOCRIT 43.3 % (37.9-51.0); HEMOGLOBIN 14.6 g/dL (13.5-17.0); LYMPHOCYTES % (AUTO) 38.4 % (13-45); MEAN CORPUSCULAR HEMOGLOBIN 29.8 pg (27.0-33.4); MEAN CORPUSCULAR HGB CONC 33.6 g/dL (32.0-36.0); MEAN CORPUSCULAR VOLUME 89 fl (80-97); MONOCYTES % (AUTO) 11.2 % (3-13); PLATELET COUNT 286 10^3/uL (150-450); RED BLOOD COUNT 4.89 10^6/uL (4.35-5.55); RED CELL DISTRIBUTION WIDTH 13.3 % (11.5-14.0); SEGMENTED NEUTROPHILS % (AUTO) 46.8 % (42-78); TOTAL CELLS COUNTED % (AUTO) 100 %; WHITE BLOOD COUNT 8.4 10^3/uL (4.0-10.5)
[2017-05-04 19:52] LABS: APPEARANCE,URINE CLEAR; BILIRUBIN,URINE NEGATIVE (NEGATIVE); COLOR,URINE YELLOW; GLUCOSE, URINE NEGATIVE (NEGATIVE); KETONES,URINE NEGATIVE (NEGATIVE); LEUKOCYTE ESTERASE,URINE NEGATIVE (NEGATIVE); NITRITE,URINE NEGATIVE (NEGATIVE); PROTEIN,URINE NEGATIVE (NEGATIVE); URINE SPECIFIC GRAVITY 1.023; UROBILINOGEN,URINE NEGATIVE mg/dL (<2.0)
[2017-05-04 20:35] LABS: ALANINE AMINOTRANSFERASE 57 U/L (21-72); ALBUMIN 4.3 g/dL (3.5-5.0); ALKALINE PHOSPHATASE 68 U/L (38-126); ANION GAP 10 (5-19); ASPARTATE AMINO TRANSFERASE 30 U/L (17-59); BILIRUBIN,DIRECT 0.3 mg/dL (0.0-0.4); BILIRUBIN,TOTAL 0.4 mg/dL (0.2-1.3); BLOOD UREA NITROGEN 19 mg/dL (7-20); CALCIUM 9.2 mg/dL (8.4-10.2); CARBON DIOXIDE 24 mmol/L (22-30); CHLORIDE 108 mmol/L (98-107); GLUCOSE 88 mg/dL (75-110); POTASSIUM 4.3 mmol/L (3.6-5.0); SODIUM 141.6 mmol/L (137-145); TOTAL PROTEIN 7.3 g/dL (6.3-8.2)
--- NOTE | 2017-05-04 21:04 | ER Document Report ---
ED GI Bleed / Rectal Pain - General Chief Complaint: Post Surgical Pain Stated Complaint: SURGERY COMPLICATION Time Seen by Provider: 05/04/17 18:39 Mode of Arrival: Ambulatory Information source: Patient TRAVEL OUTSIDE OF THE U.S. IN LAST 30 DAYS: No - HPI Patient complains to provider of: Rectal pain Notes: Patient is here with complaints of left-sided rectal/buttock pain. Patient has a prior history of rectal fistulas and has had approximately 10 surgeries in the past due to rectal fistulas. States that every time he has surgery he ends up with an infection. He had surgery 1 week ago, he states that he has had pain in his rectal area since having surgery but the pain has gotten worse and is concerned now that he has an infection. He denies fevers. He denies nausea , vomiting, diarrhea. His last bowel movement was earlier today. He denies any abdominal pain. He denies any chest pain or shortness of breath. He has not contacted his surgeon at [facility]. He has been taking oxycodone as well as Tylenol and Motrin as needed for pain. No other complaints. - Related Data Allergies/Adverse Reactions: No Known Allergies Allergy (Verified 05/04/17 18:14) Past Medical History - General Information source: Patient - Social History Smoking Status: Never Smoker Chew tobacco use (# tins/day): No Frequency of alcohol use: None Drug Abuse: None Family History: Reviewed & Not Pertinent Patient has suicidal ideation: No Patient has homicidal ideation: No - Past Medical History Cardiac Medical History: Denies: Hx Coronary Artery Disease, Hx Heart Attack, Hx Hypertension Pulmonary Medical History: Denies: Hx Asthma, Hx Bronchitis, Hx COPD, Hx Pneumonia Neurological Medical History: Denies: Hx Cerebrovascular Accident, Hx Seizures Endocrine Medical History: Denies: Hx Diabetes Mellitus Type 2 Renal/ Medical History: Denies: Hx Peritoneal Dialysis GI Medical History: Reports: Hx Colonoscopy. Denies: Hx Crohn's Disease Musculoskeltal Medical History: Denies Hx Arthritis Past Surgical History: Reports: Hx Rectal Surgery - fistulectomy, Other - Rectal fistula repair - Immunizations Hx Diphtheria, Pertussis, Tetanus Vaccination: No Review of Systems - Review of Systems -: Yes All other systems reviewed and negative Physical Exam - Vital signs Vitals: Temp Pulse Resp BP Pulse Ox 98.7 F 66 18 125/72 96 05/04/17 17:12 05/04/17 17:12 05/04/17 17:12 05/04/17 17:12 05/04/17 17:12 - Notes Notes: GENERAL: alert, cooperative, nontoxic, no distress. HEAD: normocephalic, atraumatic EYES: conjunctiva pink without discharge, no external redness or swelling. EARS: no external swelling, no external redness NOSE: atraumatic, no external swelling MOUTH/THROAT: mucous membranes moist and pink, posterior pharynx without erythema, swelling, exudate. No trismus or drooling. NECK: soft, supple, full range of motion, no meningismus. CHEST: no distress, lungs clear and equal throughout. No wheezing, rales, rhonchi. CARDIAC: regular rate and rhythm, no murmur, normal capillary refill, normal pulses. No peripheral edema noted. ABDOMEN: Soft, nontender. No rebound tenderness or guarding. No mass. BACK: full range of motion, no CVA tenderness. EXTREMITIES: full range of motion of all extremities. No redness, no swelling. NEURO: alert and oriented x 3, no focal deficits, full range of motion of all extremities. PYSCH: appropriate mood, affect. Patient is cooperative. SKIN: pink, warm, dry, no rash. RECTAL: Healing incision to the left buttock starting at the rectal area and moving laterally. There is no surrounding erythema. There is mild tenderness. There is red streaking/strain noted coming from the incision site. There is no drainage noted. Course - Re-evaluation Re-evalutation: 05/04/17 22:45 Patient is nontoxic appearing with stable vitals. The patient had left sided rectal fistula surgery done last week at [facility]. Been having pain in the surgical site area since that time. He denies any drainage. No fever. He states that he has had previous infections after having the surgery and is concerned that he may have an infection. He denies any other complaints at this time. On exam his surgical incision site appears to be healing well with no surrounding erythema or drainage. There is no significant tenderness to palpation. Lab work is all unremarkable, normal white blood cell count. CT of the pelvis with IV contrast shows no abscess or signs of infection. Pain is likely postoperative in nature. The patient will be discharged home with a small supply of pain medication and instructions for him to follow back up with his surgeon at the next available appointment. He should follow-up sooner for increasing pain, fever, persistent vomiting, or for any further concerns. The patient's emergency department workup and current diagnosis were explained to the patient and or family. Follow-up instructions were provided. Medications if prescribed were discussed. Instructions for when to return to the emergency department including specific worrisome symptoms were discussed with the patient and/or family. The patient is noted to have elevated blood pressure during today's emergency department visit. The patient was informed of this finding. The patient was instructed that this may be related to pre-hypertension and requires further evaluation with a primary care provider. The patient has no hypertensive symptoms at this time. - Vital Signs Vital signs: Temp Pulse Resp BP Pulse Ox 98.7 F 66 18 125/72 96 05/04/17 17:12 05/04/17 17:12 05/04/17 17:12 05/04/17 17:12 05/04/17 17:12 - Laboratory Result Diagrams: 05/04/17 19:00 05/04/17 19:54 Laboratory results interpreted by me: 05/04/17 19:54 Chloride 108 H - Diagnostic Test Radiology reviewed: Image reviewed, Reports reviewed - CT of the pelvis with IV contrast shows soft tissue thickening on the left with no sign of abscess or infection. Discharge - Discharge Clinical Impression: Post-operative pain Condition: Stable Disposition: HOME, SELF-CARE Instructions: Pain Management Additional Instructions: Take medications as prescribed. Follow-up with your surgeon at the next available appointment. Follow-up sooner for worsening pain, high fever, persistent vomiting, redness, drainage, any further concerns. Your blood pressure was elevated during today's visit. Have this rechecked with your doctor. The medication you were prescribed today may cause drowsiness. Do not drive or operate heavy machinery while taking this medication. Prescriptions: Oxycodone HCl 5 mg PO Q4H PRN #10 tablet PRN Reason: Forms: Elevated Blood Pressure, Smoking Cessation Education Referrals: MARAL ESPINOSA MD [Primary Care Provider] - Follow up as needed
--- NOTE | 2017-05-04 21:55 | RADIOLOGY REPORT (SQ) ---
EXAM DESCRIPTION: CT PELVIS WITH COMPLETED DATE/TIME: 05/04/2017 9:19 pm REASON FOR STUDY: recent rectal surgery, increased pain COMPARISON: CT the abdomen and pelvis 12/16/2016 TECHNIQUE: CT scan of the pelvis performed without intravenous or oral contrast. Images reviewed wi th soft tissue and bone windows. Reconstructed coronal and sagittal MPR images reviewed. All images stored on PACS. All CT scanners at this facility use dose modulation, iterative reconstruction, and/or weight based d osing when appropriate to reduce radiation dose to as low as reasonably achievable (ALARA). [facility]: Dose Right [facility]: CareDose [facility]: Dose Right [facility]: Teradose 4D [facility]: Smart [employer] RADIATION DOSE: CT Rad equipment meets quality standard of care and radiation dose reduction techniq ues were employed. CTDIvol: 18.8 - 21.1 mGy. DLP: 1592 mGy-cm. mGy. LIMITATIONS: None. FINDINGS: PELVIC BONES: No acute fracture. No worrisome bone lesions. VISUALIZED SPINE: No acute findings. HIP(S): No acute fracture or dislocation. No worrisome bone lesions. PELVIC SOFT TISSUES: There are scattered sigmoid diverticula. There is no free fluid in the pelvis. Urinary bladder is normal. There is asymmetrical soft tissue thickening on the left side of the rec darcy. There is no perirectal fluid collection. EXTRAPELVIC SOFT TISSUES: No significant findings. OTHER: No other significant finding. IMPRESSION: Asymmetrical soft tissue thickening on left side of the rectum with no evidence of perir ectal abscess. COMMENT: 100 cc Isovue 370 contrast. BUN 19 creatinine 0.9 TECHNICAL DOCUMENTATION: JOB ID: [id number] Quality ID # [id number]: Final reports with documentation of one or more dose reduction techniques (e.g., Au tomated exposure control, adjustment of the mA and/or kV according to patient size, use of iterative reconstruction technique) 2010 [employer]- All Rights Reserved Reading location - IP/workstation name: [email or web address]
[2017-05-04 23:04] VITALS: BP 142/89
== END 2017-05-04 23:05 | disposition home or self-care (01) ==
LOC: ER 16:51
DX: G89.18 Other acute postprocedural pain (principal); K62.89 Other specified diseases of anus and rectum; R03.0 Elevated blood-pressure reading, without diagnosis of hypertension
CPT/HCPCS: 99284; 96361; 96374; 36415; 85025; 80053; 81001; 72193; J2270; J2405; J7030

== ENCOUNTER 2018-03-19 12:05 | Emergency (ER) | payer MEDICAID ==
[2018-03-19] MEDS ORDERED: ONDANSETRON 4 MG TAB.RAPDIS PO ONE (12:19)
[2018-03-19] MEDS ORDERED: DICYCLOMINE HCL 20 MG TABLET PO ONE (12:19)
[2018-03-19] MEDS ORDERED: LANSOPRAZOLE 15 MG TAB.RAP.DR PO ONE (12:19)
--- NOTE | 2018-03-19 12:20 | ER Document Report ---
ED Medical Screen (RME) - General Chief Complaint: Abdominal Pain Stated Complaint: ABDOMINAL PAIN Time Seen by Provider: 03/19/18 12:19 Primary Care Provider: MARAL ESPINOSA MD [Primary Care Provider] - Follow up as needed TRAVEL OUTSIDE OF THE U.S. IN LAST 30 DAYS: No - HPI Notes: 03/19/18 12:20 Nausea vomiting diarrhea for 24 hours with epigastric abdominal pain - Related Data Allergies/Adverse Reactions: No Known Allergies Allergy (Verified 03/19/18 12:06) Past Medical History - Past Medical History Cardiac Medical History: Denies: Hx Coronary Artery Disease, Hx Heart Attack, Hx Hypertension Pulmonary Medical History: Denies: Hx Asthma, Hx Bronchitis, Hx COPD, Hx Pneumonia Neurological Medical History: Denies: Hx Cerebrovascular Accident, Hx Seizures Endocrine Medical History: Denies: Hx Diabetes Mellitus Type 2 Renal/ Medical History: Denies: Hx Peritoneal Dialysis GI Medical History: Reports: Hx Colonoscopy. Denies: Hx Crohn's Disease Musculoskeltal Medical History: Denies Hx Arthritis Past Surgical History: Reports: Hx Rectal Surgery - fistulectomy, Other - Rectal fistula repair - Immunizations Hx Diphtheria, Pertussis, Tetanus Vaccination: No Review of Systems - Review of Systems Gastrointestinal: Abdominal pain, Diarrhea, Nausea, Vomiting -: Yes All other systems reviewed and negative Physical Exam - Vital signs Vitals: Temp Pulse Resp BP Pulse Ox 98.9 F 100 16 124/77 97 03/19/18 12:14 03/19/18 12:14 03/19/18 12:14 03/19/18 12:14 03/19/18 12:14 - Respiratory Respiratory status: No respiratory distress Chest status: Nontender Breath sounds: Normal Chest palpation: Normal Course - Vital Signs Vital signs: Temp Pulse Resp BP Pulse Ox 98.9 F 100 16 124/77 97 03/19/18 12:14 03/19/18 12:14 03/19/18 12:14 03/19/18 12:14 03/19/18 12:14 Doctor's Discharge - Discharge Referrals: MARAL ESPINOSA MD [Primary Care Provider] - Follow up as needed
[2018-03-19 12:50] LABS: ABSOLUTE EOSINOPHILS # (AUTO) 0.1 10^3/uL (0.0-0.6); ABSOLUTE MONOCYTES (AUTO) 1.1 10^3/uL (0.1-1.4); ABSOLUTE NEUT (AUTO) 11.5 10^3/uL (1.7-8.2); BASOPHILS % (AUTO) 0.1 % (0-2); EOSINOPHILS % (AUTO) 0.8 % (0-6); HEMATOCRIT 43.2 % (37.9-51.0); HEMOGLOBIN 14.7 g/dL (13.5-17.0); LYMPHOCYTES % (AUTO) 7.5 % (13-45); MEAN CORPUSCULAR HEMOGLOBIN 29.9 pg (27.0-33.4); MEAN CORPUSCULAR VOLUME 88 fl (80-97); MONOCYTES % (AUTO) 7.7 % (3-13); PLATELET COUNT 249 10^3/uL (150-450); RED BLOOD COUNT 4.91 10^6/uL (4.35-5.55); RED CELL DISTRIBUTION WIDTH 13.1 % (11.5-14.0); SEGMENTED NEUTROPHILS % (AUTO) 83.9 % (42-78); TOTAL CELLS COUNTED % (AUTO) 100 %; WHITE BLOOD COUNT 13.7 10^3/uL (4.0-10.5)
[2018-03-19 12:55] LABS: APPEARANCE,URINE CLEAR; BILIRUBIN,URINE NEGATIVE (NEGATIVE); COLOR,URINE YELLOW; GLUCOSE, URINE NEGATIVE (NEGATIVE); KETONES,URINE NEGATIVE (NEGATIVE); LEUKOCYTE ESTERASE,URINE NEGATIVE (NEGATIVE); NITRITE,URINE NEGATIVE (NEGATIVE); PROTEIN,URINE NEGATIVE (NEGATIVE); URINE SPECIFIC GRAVITY 1.028; UROBILINOGEN,URINE NEGATIVE mg/dL (<2.0)
--- NOTE | 2018-03-19 12:55 | ER Document Report ---
ED GI/ - General Chief Complaint: Abdominal Pain Stated Complaint: ABDOMINAL PAIN Time Seen by Provider: 03/19/18 12:19 Primary Care Provider: MARAL ESPINOSA MD [Primary Care Provider] - Follow up as needed Notes: This is a pleasant 42-year-old [place] [employer] is in the emergency department for evaluation of epigastric abdominal pain, nausea, vomiting and diarrhea. has similar symptoms. Pain in the epigastric region is white came in today. Has had about 4 bowel movements today. Denies any blood in the stool, black tarry stools or other issues at this time. TRAVEL OUTSIDE OF THE [place] IN LAST 30 DAYS: No - HPI Patient complains to provider of: Abdominal pain, Diarrhea Timing/Duration: Gradual, Worse Quality of pain: Achy, Burning Severity at maximum: Moderate Severity in ED: Moderate Pain Level: 2 Location: Epigastric, RUQ Associated symptoms: Diarrhea - Related Data Allergies/Adverse Reactions: No Known Allergies Allergy (Verified 03/19/18 12:06) Past Medical History - General Information source: Patient - Social History Smoking Status: Never Smoker Frequency of alcohol use: None Drug Abuse: None Lives with: Spouse/Significant other Family History: Reviewed & Not Pertinent Patient has suicidal ideation: No Patient has homicidal ideation: No - Past Medical History Cardiac Medical History: Denies: Hx Coronary Artery Disease, Hx Heart Attack, Hx Hypertension Pulmonary Medical History: Denies: Hx Asthma, Hx Bronchitis, Hx COPD, Hx Pneumonia Neurological Medical History: Denies: Hx Cerebrovascular Accident, Hx Seizures Endocrine Medical History: Denies: Hx Diabetes Mellitus Type 2 Renal/ Medical History: Denies: Hx Peritoneal Dialysis GI Medical History: Reports: Hx Colonoscopy. Denies: Hx Crohn's Disease Musculoskeletal Medical History: Denies Hx Arthritis Past Surgical History: Reports: Hx Rectal Surgery - fistulectomy, Other - Rectal fistula repair - Immunizations Hx Diphtheria, Pertussis, Tetanus Vaccination: No Review of Systems - Review of Systems Notes: Constitutional: denies: Chills, Diaphoresis, Fever, Malaise, Weakness EENT: denies: Eye discharge, Blurred vision, Tearing, Double vision, Nose congestion, Nose discharge, Throat swelling, Mouth pain Cardiovascular: denies: Palpitations, Heart racing, Orthopnea, Dyspnea, Chest pain Respiratory: denies: Cough, Hurts to breathe, Wheezing, Shortness of breath Gastrointestinal: Positive for nausea, vomiting, diarrhea and epigastric abd ominal pain. Genitourinary: denies: Burning, Dysuria, Discharge, Frequency, Flank pain, Hematuria Musculoskeletal: denies: Joint pain, Joint swelling, Muscle pain, Muscle stiffness, back pain Hematologic/Lymphatic: denies: Anemia, Easy bleeding, Easy bruising, Blood clots Neurological/Psychological: denies: Confusion, Dementia, Depression, Loss of consciousness Skin: No lesions, no masses, no skin breakdown, no abscesses Physical Exam - Vital signs Vitals: Temp Pulse Resp BP Pulse Ox 98.9 F 100 16 124/77 97 03/19/18 12:14 03/19/18 12:14 03/19/18 12:14 03/19/18 12:14 03/19/18 12:14 Interpretation: Normal - General General appearance: Appears well, Alert - HEENT Head: Normocephalic, Atraumatic Eyes: Normal Pupils: PERRL - Respiratory Respiratory status: No respiratory distress Chest status: Nontender Breath sounds: Normal Chest palpation: Normal - Cardiovascular Rhythm: Regular Heart sounds: Normal auscultation Murmur: No - Abdominal Inspection: Normal Distension: No distension Bowel sounds: Normal Tenderness: Tender - Mild tenderness in the epigastric region and right upper quadrant area. No guarding or rebound. Organomegaly: No organomegaly - Back Back: Normal, Nontender - Extremities General upper extremity: Normal inspection, Nontender, Normal color, Normal ROM, Normal temperature General lower extremity: Normal inspection, Nontender, Normal color, Normal ROM, Normal temperature, Normal weight bearing. No: Jude's sign - Neurological Neuro grossly intact: Yes Cognition: Normal Orientation: AAOx4 [place] Coma Scale Eye Opening: Spontaneous Octavio Coma Scale Verbal: Oriented Octavio Coma Scale Motor: Obeys Commands [place] Coma Scale Total: 15 Speech: Normal Motor strength normal: LUE, RUE, LLE, RLE Sensory: Normal - Psychological Associated symptoms: Normal affect, Normal mood - Skin Skin Temperature: Warm Skin Moisture: Dry Skin Color: Normal Course - Re-evaluation Re-evalutation: 03/19/18 14:44 Laboratory 03/19/18 03/19/18 03/19/18 12:30 12:30 12:30 WBC 13.7 H RBC 4.91 Hgb 14.7 Hct 43.2 MCV 88 MCH 29.9 MCHC 34.0 RDW 13.1 Plt Count 249 Seg Neutrophils % 83.9 H Lymphocytes % 7.5 L Monocytes % 7.7 Eosinophils % 0.8 Basophils % 0.1 Absolute Neutrophils 11.5 H Absolute Lymphocytes 1.0 Absolute Monocytes 1.1 Absolute Eosinophils 0.1 Absolute Basophils 0.0 Sodium 141.4 Potassium 4.8 Chloride 108 H Carbon Dioxide 23 Anion Gap 10 BUN 20 Creatinine 0.92 Est GFR ( Amer) > 60 Est GFR (Non-Af Amer) > 60 Glucose 100 Calcium 9.3 Total Bilirubin 1.0 Direct Bilirubin 0.1 Neonat Total Bilirubin Not Reportable Neonat Direct Bilirubin Not Reportable Neonat Indirect Bili Not Reportable AST 30 ALT 42 Alkaline Phosphatase 81 Total Protein 8.2 Albumin 5.1 H Lipase 73.5 Urine Color YELLOW Urine Appearance CLEAR Urine pH 5.0 Ur Specific [place] 1.028 Urine Protein NEGATIVE Urine Glucose (UA) NEGATIVE Urine Ketones NEGATIVE Urine Blood SMALL H Urine Nitrite NEGATIVE Urine Bilirubin NEGATIVE Urine Urobilinogen NEGATIVE Ur Leukocyte Esterase NEGATIVE Urine WBC (Auto) 0 Urine RBC (Auto) 1 Urine Mucus (Auto) MOD Urine Ascorbic Acid NEGATIVE Abdomen Ultrasound 03/19/18 13:20 IMPRESSION: No ultrasound abnormality of the right upper quadrant to explain abdominal pain. Consider additional imaging including CT or MRI to further evaluate unexplained abdominal pain. This is a well-appearing patient in no acute distress. Normal labs. Mild epigastric tenderness. No flank pain. No fever. No Reported blood in the stool. At this time I feel patient is more likely suffering from a gastritis. Feeling better at this time. Will recommend good close outpatient follow-up for repeat to the emergency department in 24 hours for recheck if symptoms are getting worse. - Vital Signs Vital signs: Temp Pulse Resp BP Pulse Ox 98.9 F 100 16 124/77 97 03/19/18 12:14 03/19/18 12:14 03/19/18 12:14 03/19/18 12:14 03/19/18 12:14 - Laboratory Result Diagrams: 03/19/18 12:30 03/19/18 12:30 Laboratory results interpreted by me: 03/19/18 03/19/18 03/19/18 12:30 12:30 12:30 WBC 13.7 H Seg Neutrophils % 83.9 H Lymphocytes % 7.5 L Absolute Neutrophils 11.5 H Chloride 108 H Albumin 5.1 H Urine Blood SMALL H Discharge - Discharge Clinical Impression: Gastritis Qualifiers: Gastritis type: unspecified gastritis Chronicity: acute Gastritis bleeding: without bleeding Qualified Code(s): K29.00 - Acute gastritis without bleeding Diarrhea Qualifiers: Diarrhea type: unspecified type Qualified Code(s): R19.7 - Diarrhea, unspecified Condition: Good Disposition: HOME, SELF-CARE Instructions: Abdominal Pain ([facility]), Gastritis ([facility]) Additional Instructions: Continue to eat and drink as tolerated. I would avoid spicy foods. Make sure you are drinking plenty of liquids. We find no significant abnormalities with your labs or on the ultrasound today. Please return in 24 hours for recheck if symptoms are getting worse or no better. Prescriptions: Hydrocodone/Acetaminophen [Onemo 5-325 mg Tablet] 1 tab PO TID PRN 3 Days #9 tablet PRN Reason: Ondansetron [Zofran Odt 4 mg Tablet] 1 - 2 tab PO Q4H PRN #15 tab.rapdis PRN Reason: For Nausea/Vomiting Ranitidine HCl [Zantac] 150 mg PO BID 7 Days #14 tablet Referrals: MARAL ESPINOSA MD [Primary Care Provider] - Follow up as needed
[2018-03-19 13:06] LABS: ALANINE AMINOTRANSFERASE 42 U/L (21-72); ALBUMIN 5.1 g/dL (3.5-5.0); ALKALINE PHOSPHATASE 81 U/L (38-126); ANION GAP 10 (5-19); ASPARTATE AMINO TRANSFERASE 30 U/L (17-59); BILIRUBIN,DIRECT 0.1 mg/dL (0.0-0.4); BLOOD UREA NITROGEN 20 mg/dL (7-20); CALCIUM 9.3 mg/dL (8.4-10.2); CARBON DIOXIDE 23 mmol/L (22-30); CHLORIDE 108 mmol/L (98-107); GLUCOSE 100 mg/dL (75-110); LIPASE 73.5 U/L (23-300); POTASSIUM 4.8 mmol/L (3.6-5.0); SODIUM 141.4 mmol/L (137-145); TOTAL PROTEIN 8.2 g/dL (6.3-8.2)
[2018-03-19] MEDS ORDERED: LIDOCAINE 2% VISCOUS SOLN 20 ML UDCUP PO ONE (13:24)
[2018-03-19] MEDS ORDERED: METOCLOPRAMIDE HCL ORAL SOLN 10 MG/10 ML UDCUP PO ONE (13:24)
[2018-03-19] MEDS ORDERED: MAG HYDROX/AL HYDROX/SIMETH SUSP 30 ML UDCUP PO ONE (13:24)
--- NOTE | 2018-03-19 14:26 | RADIOLOGY REPORT (SQ) ---
EXAM DESCRIPTION: U/S ABDOMEN LIMITED W/O DOP COMPLETED DATE/TIME: 03/19/2018 2:12 pm REASON FOR STUDY: ruq and epigastric pain COMPARISON: None. TECHNIQUE: Dynamic and static grayscale images acquired of the abdomen and recorded on PACS. Additio nal selected color Doppler and spectral images recorded. LIMITATIONS: None. FINDINGS: PANCREAS: No masses. Visualized pancreatic duct normal caliber. LIVER: No masses. Echotexture normal. LIVER VASCULATURE: Normal directional flow of the main portal vein and hepatic veins. GALLBLADDER: No stones. Normal wall thickness. No pericholecystic fluid. ULTRASOUND-DETECTED ROBLES'S SIGN: Negative. INTRAHEPATIC DUCTS AND COMMON DUCT: CBD and intrahepatic ducts normal caliber. No filling defects. INFERIOR VENA CAVA: Normal flow. AORTA: No aneurysm. RIGHT KIDNEY: Normal size. Normal echogenicity. No solid or suspicious masses. No hydronephrosis. No calcifications. PERITONEAL AND RIGHT PLEURAL SPACE: No ascites or effusions. OTHER: No other significant findings. IMPRESSION: No ultrasound abnormality of the right upper quadrant to explain abdominal pain. Consid er additional imaging including CT or MRI to further evaluate unexplained abdominal pain. TECHNICAL DOCUMENTATION: JOB ID: [id number] [employer]- All Rights Reserved Reading location - IP/workstation name: [email or web address]
[2018-03-19 15:05] VITALS: BP 127/80
== END 2018-03-19 15:07 | disposition home or self-care (01) ==
LOC: ER 12:05
DX: K29.00 Acute gastritis without bleeding (principal); R19.7 Diarrhea, unspecified; R10.13 Epigastric pain; R10.11 Right upper quadrant pain; R11.2 Nausea with vomiting, unspecified
CPT/HCPCS: 99284; 36415; 83690; 85025; 80053; 81001; 76705; J3490 ×4; S0119

== ENCOUNTER 2018-07-12 05:19 | Day surgery (SDC) | payer MEDICAID ==
[2018-07-05 08:58] LABS: MEAN CORPUSCULAR HEMOGLOBIN 28.6 pg (27.0-33.4); MEAN CORPUSCULAR HGB CONC 33.4 g/dL (32.0-36.0); MEAN CORPUSCULAR VOLUME 86 fl (80-97); PLATELET COUNT 246 10^3/uL (150-450); RED BLOOD COUNT 4.91 10^6/uL (4.35-5.55); RED CELL DISTRIBUTION WIDTH 13.5 % (11.5-14.0); WHITE BLOOD COUNT 7.4 10^3/uL (4.0-10.5)
[~2018-07-12 05:19] MED LIST: LACTATED RINGERS 1000 ML IV PRN; LIDOCAINE 0.5% INJ-PF (5 MG/ML) 50 ML SDV SUBCUT PRN
[2018-07-12] MEDS ORDERED: FENTANYL CITRATE INJ/PF 100 MCG/2 ML AMPUL ONE (07:05)
[2018-07-12] MEDS ORDERED: MIDAZOLAM 2 MG/2 ML INJ ONE (07:05)
[2018-07-12] MEDS ORDERED: EPHEDRINE SULFATE INJ 50 MG/1 ML AMPULE ONE (07:06)
[2018-07-12] MEDS ORDERED: PROPOFOL INJ 200 MG/20 ML VIAL IV ONE (07:06)
[2018-07-12] MEDS ORDERED: LIDOCAINE 1%/EPINEPHRINE INJ 20 ML VIAL ONE (07:12)
[2018-07-12] MEDS ORDERED: BUPIVACAINE HCL 0.25 % INJ/PF (2.5 MG/1 ML) 30 ML VIAL ONE (07:41)
[2018-07-12] MEDS ORDERED: DIPHENHYDRAMINE HCL 50 MG/ML VIAL IV PRN (07:52)
[2018-07-12] MEDS ORDERED: OXYCODONE-ACETAMINOPHEN 5-325 MG TABLET PO PRN ×2 (07:52)
[2018-07-12] MEDS ORDERED: MEPERIDINE HCL/PF INJ 25 MG/1 ML DISP.SYRIN IV PRN (07:52)
[2018-07-12] MEDS ORDERED: FENTANYL CITRATE INJ/PF 100 MCG/2 ML AMPUL IV PRN ×3 (07:52)
[2018-07-12] MEDS ORDERED: PROMETHAZINE HCL INJ 25 MG/1 ML VIAL IV PRN ×2 (07:52)
--- NOTE | 2018-07-12 08:10 | Discharge Summary ---
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 Sitz bath's as needed; prescription for Toradol on chart. Return to [place] [facility] in [address] Glover. Referrals: MARAL ESPINOSA MD [Primary Care Provider] - Discharge Diet: As Tolerated Discharge Activity: Activity As Tolerated Home Care Assistance: None Needed Report the Following to Your Physician Immediately: Shortness of Breath, Increase in Pain, Fever over 101 Degrees
--- NOTE | 2018-07-12 08:18 | Operative Report ---
Operative Report DATE OF SURGERY: 07/12/18 PREOPERATIVE DIAGNOSIS: Chronic, recurrent right posterior lateral fistula in a no POSTOPERATIVE DIAGNOSIS: Same OPERATION: 1. Examination under anesthesia. 2. Rigid anoscopy and sigmoidoscopy to 25 cm. 3. Debridement of right perianal abscess, opening of fistula tract, and placement of draining seton SURGEON: JUAN CARLOS GARCIA ANESTHESIA: GA TISSUE REMOVED OR ALTERED: Cavity and tract debris and granulation tissue COMPLICATIONS: None ESTIMATED BLOOD LOSS: A cc INTRAOPERATIVE FINDINGS: See below PROCEDURE: Patient was seen in the preop holding area. He was then taken to the main operating room where general anesthesia was induced. He was placed in the prone jackknife position buttocks clipped of hair, then prepped and draped sterile fashion Surgical plan surgical timeout were conducted. The perianal tissue was anesthetized with quarter percent Marcaine. The findings were significant for 2 openings in the right posterior lateral perianal tissue consistent with a chronic draining sinus points. These 2 sites were opened up and the intervening skin bridge approximately 1/2 cm in length was excised. The remainder of the perianal tissue, other than chronic scarring appeared to be grossly intact and uninvolved with acute infection. I digitalized the anal canal to accept 2 index fingers. I could palpate an internal opening in the posterior lateral anal canal. Identification of the dentate line was next to impossible due to the chronic scarring. The bullet anoscope was advanced into the anal canal and careful inspection revealed a internal opening somewhat irregular shaped approximately 5 mm diameter approximately 5cm proximal to the anal verge. There appeared to be no other openings in the anal canal. Other than chronic scarring along the posterior anal region, which was, there were no other draining sites, or inflammation. We remove the bullet anoscope and inserted the rigid sigmoidoscope. I scope the patient to approximately 25 cm in the anal verge. There was pathology in the rectum. We now opened up the communication between the perianal draining site, and the internal opening. This required a fair amount of probing with curette, and Keene clamp. Eventually I was able to establish the communication. There appeared to be no other tracking proximally distally, laterally or medially. I curetted the tract out vigorously, then placed a loop red drain and tied it loosely. The intent was to establish a draining seton. Recheck for any mechanical bleeding there was none. The abscess cavity opening in the perianal tissue was packed with 6 inches of iodoform packing. Additional Marcaine was injected around the operative site. We felt the operation was complete. Patient was placed in the supine position, extubated and taken recovery room stable
[2018-07-12 10:56] VITALS: BP 115/83
[2018-07-12] MEDS ORDERED: NEOSTIGMINE METHYLSULFATE 10 MG/10 ML VIAL ONE (12:08)
[2018-07-12] MEDS ORDERED: KETOROLAC TROMETHAMINE 60 MG/2 ML SDV ONE (12:08)
[2018-07-12] MEDS ORDERED: GLYCOPYRROLATE 1 MG/5 ML SYRINGE ONE (12:08)
[2018-07-12] MEDS ORDERED: LIDOCAINE 2% INJ-PF (20 MG/ML) 2 ML AMPUL ONE (12:08)
[2018-07-12] MEDS ORDERED: ONDANSETRON HCL INJ/PF 4 MG/2 ML SDV ONE (12:08)
[2018-07-12] MEDS ORDERED: DEXAMETHASONE SOD PHOSPHATE INJ 4 MG/1 ML VIAL ONE (12:08)
[2018-07-12] MEDS ORDERED: SUCCINYLCHOLINE CHLORIDE INJ 200 MG/10 ML VIAL ONE (12:08)
[2018-07-12] MEDS ORDERED: ROCURONIUM BROMIDE INJ 50 MG/5 ML VIAL IV ONE (12:08)
== END 2018-07-12 10:15 | disposition home or self-care (01) ==
LOC: OROUT 05:19
PROVIDERS: ATTEND Surgery
DX: K61.0 Anal abscess (principal)
CPT/HCPCS: 36415; 85027; 46020; 45330; A6266; J2250; J3490 ×4; J1100; J1885; J3010; J2710; J0330; J2405; S0020; J2704; 902

== ENCOUNTER → 2018-10-03 | Outpatient (CLI) | payer MEDICAID ==
--- NOTE | 2018-10-03 13:18 | RADIOLOGY REPORT (SQ) ---
EXAM DESCRIPTION: MRI PELVIS COMBO COMPLETED DATE/TIME: 10/03/2018 8:08 am REASON FOR STUDY: ANAL FISSURE, UNSPEC (K60.2), ANAL FISTULA (K60.3) K60.2 ANAL FISSURE, UNSPECIFIE D K60.3 ANAL FISTULA COMPARISON: 04/09/2015 TECHNIQUE: Multiplanar multisequence imaging without and with contrast including axial, sagittal and coronal fat sat T2, axial and coronal T1, axial and coronal T1 post contrast. CONTRAST TYPE AND DOSE: 20 mL Dotarem. RENAL FUNCTION: Not indicated. ACR Type II contrast agent associated with few, if any, unconfounded cases of NSF LIMITATIONS: None. FINDINGS: Enhancement within chronic perianal fistula to left of midline. No organized abscess. No involvement of more anterior structures in the pelvis. PROSTATE: Normal zonal anatomy and signal. No focal nodules or masses. SEMINAL VESICLES: Normal. PELVIS: No masses. No adenopathy. BLADDER: Normal. PELVIS SKELETAL STRUCTURES: No abnormal marrow signal. EXTRA PELVIC SOFT TISSUES: No masses. OTHER: No other significant finding. IMPRESSION: Chronic left perianal fistula. TECHNICAL DOCUMENTATION: JOB ID: [id number] [employer]- All Rights Reserved Reading location - IP/workstation name: [email or web address]
== END ==
LOC: RAD 06:57
PROVIDERS: ATTEND Surgery
DX: K60.2 Anal fissure, unspecified (principal); K60.3 Anal fistula
CPT/HCPCS: 72197; A9576

== ENCOUNTER 2018-11-26 05:19 | Emergency (ER) | payer MEDICAID ==
[2018-11-26] MEDS ORDERED: KETOROLAC TROMETHAMINE 60 MG/2 ML SDV IM ONE (07:56)
--- NOTE | 2018-11-26 08:56 | RADIOLOGY REPORT (SQ) ---
EXAM DESCRIPTION: CHEST 2 VIEWS COMPLETED DATE/TIME: 11/26/2018 8:23 am REASON FOR STUDY: fall, thoracolumbar pain radiating to ribs COMPARISON: 02/21/2017 EXAM PARAMETERS: NUMBER OF VIEWS: two views TECHNIQUE: Digital Frontal and Lateral radiographic views of the chest acquired. RADIATION DOSE: NA LIMITATIONS: none FINDINGS: LUNGS AND PLEURA: No opacities, masses or pneumothorax. No pleural effusion. MEDIASTINUM AND HILAR STRUCTURES: No masses or contour abnormalities. HEART AND VASCULAR STRUCTURES: Heart normal size. No evidence for failure. BONES: No acute findings. HARDWARE: None in the chest. OTHER: No other significant finding. IMPRESSION: NO ACUTE RADIOGRAPHIC FINDING IN THE CHEST. TECHNICAL DOCUMENTATION: JOB ID: [id number] [employer]- All Rights Reserved Reading location - IP/workstation name: [email or web address]
--- NOTE | 2018-11-26 08:56 | RADIOLOGY REPORT (SQ) ---
EXAM DESCRIPTION: L SPINE WHOLE COMPLETED DATE/TIME: 11/26/2018 8:23 am REASON FOR STUDY: fall, thoracolumbar pain radiating to ribs COMPARISON: None. NUMBER OF VIEWS: Five views including obliques. TECHNIQUE: AP, lateral, oblique, and sacral radiographic images acquired of the lumbar spine. LIMITATIONS: None. FINDINGS: MINERALIZATION: Normal. SEGMENTATION: Normal. No transitional anatomy. ALIGNMENT: Normal. VERTEBRAE: Maintained height. No fracture or worrisome bone lesion. DISCS: Preserved height. No significant osteophytes or end plate irregularity. POSTERIOR ELEMENTS: Pedicles and facets are intact. No pars defect or posterior arch defects. HARDWARE: None in the spine. PARASPINAL SOFT TISSUES: Normal. PELVIS: Intact as visualized. No fractures or worrisome bone lesions. SI joints intact. OTHER: No other significant finding. IMPRESSION: NORMAL 5 VIEW LUMBAR SPINE. TECHNICAL DOCUMENTATION: JOB ID: [id number] [employer]- All Rights Reserved Reading location - IP/workstation name: [email or web address]
--- NOTE | 2018-11-26 08:57 | RADIOLOGY REPORT (SQ) ---
EXAM DESCRIPTION: T SPINE AP/LAT COMPLETED DATE/TIME: 11/26/2018 8:23 am REASON FOR STUDY: fall, thoracolumbar pain radiating to mid chest COMPARISON: None. NUMBER OF VIEWS: Two views. TECHNIQUE: AP and lateral radiographic images acquired of the thoracic spine. LIMITATIONS: None. FINDINGS: MINERALIZATION: Normal. ALIGNMENT: Normal. No scoliosis. VERTEBRAE: No fracture or bone lesion. Maintained height, normal segmentation. DISCS: No significant loss of height or significant narrowing. No large osteophytes. HARDWARE: None in the spine. MEDIASTINUM AND SOFT TISSUES: Normal heart size and aortic contour. No soft tissue abnormality. VISUALIZED LUNG COLUNGA: Clear. OTHER: No other significant finding. IMPRESSION: NO SIGNIFICANT RADIOGRAPHIC FINDING IN THE THORACIC SPINE. TECHNICAL DOCUMENTATION: JOB ID: [id number] [employer]- All Rights Reserved Reading location - IP/workstation name: [email or web address]
--- NOTE | 2018-11-26 09:29 | ER Document Report ---
ED General - General Chief Complaint: Back Injury Stated Complaint: FALL-BACK PAIN Time Seen by Provider: 11/26/18 07:22 Primary Care Provider: MARAL ESPINOSA MD [Primary Care Provider] - Follow up as needed Notes: 43-year-old male presents emergency department complaining of left-sided low back pain since he slipped and fell on wet grass yesterday and landed on his side. This was a fall from a standing position. Patient cannot remember which side he landed on. Patient states that he was able to go to sleep last night and Aleve partially relieved his pain but when he woke up this morning he had difficulty rolling over due to pain. Patient has no difficulty standing or walking, just complains of pain that starts on the left side of his low back and radiates to his chest and epigastric region. Denies any numbness, tingling, weakness, bowel or bladder dysfunction, difficulty walking, shortness of breath, nausea or vomiting. TRAVEL OUTSIDE OF THE [place] IN LAST 30 DAYS: No - Related Data Allergies/Adverse Reactions: shrimp Allergy (Verified 09/18/18 13:32) Anaphylaxis Past Medical History - General Information source: Patient - Social History Smoking Status: Never Smoker Frequency of alcohol use: None Drug Abuse: None Family History: Reviewed & Not Pertinent Patient has suicidal ideation: No Patient has homicidal ideation: No - Past Medical History Cardiac Medical History: Denies: Hx Coronary Artery Disease, Hx Heart Attack, Hx Hypertension Pulmonary Medical History: Denies: Hx Asthma, Hx Bronchitis, Hx COPD, Hx Pneumonia Neurological Medical History: Denies: Hx Cerebrovascular Accident, Hx Seizures Endocrine Medical History: Denies: Hx Diabetes Mellitus Type 2 Renal/ Medical History: Denies: Hx Peritoneal Dialysis GI Medical History: Reports: Hx Colonoscopy. Denies: Hx Crohn's Disease Musculoskeletal Medical History: Denies Hx Arthritis Past Surgical History: Reports: Hx Rectal Surgery - fistulectomy, Other - Rectal fistula repair - Immunizations Hx Diphtheria, Pertussis, Tetanus Vaccination: No Review of Systems - Review of Systems Cardiovascular: See HPI Musculoskeletal: See HPI -: Yes All other systems reviewed and negative Physical Exam - Vital signs Vitals: Temp Pulse Resp BP Pulse Ox 98.1 F 72 16 123/79 99 11/26/18 05:23 11/26/18 05:23 11/26/18 05:23 11/26/18 05:23 11/26/18 05:23 Interpretation: Normal - Notes Notes: GENERAL: Alert, interacts well. No acute distress. HEAD: Normocephalic, atraumatic EYES: Pupils equal, round and reactive to light, extraocular movements intact. ENT: Oral mucosa moist, tongue midline. NECK: Full range of motion, supple, trachea midline. LUNGS: Clear to auscultation bilaterally, no wheezes, rales or rhonchi, no respiratory distress. HEART: Regular rate and rhythm, no murmurs, gallops, rubs. ABDOMEN: Soft, nontender, nondistended, bowel sounds present in all 4 quadrants. EXTREMITIES: Moves all 4 extremities spontaneously, no edema, radial and dorsalis pedis pulses 2/4 bilaterally. No cyanosis. NEUROLOGICAL: Alert and oriented x3, normal speech, biceps and patellar DTRs 2+ bilaterally. 5 out of 5 great toe raising strength, 5 out of 5 muscle strength in the bilateral lower extremities, sensation intact, no saddle anesthesia, negative straight leg raising test. BACK: Tenderness to palpation around rib 12 on the left-hand side, no pinpoint tenderness, no midline bony tenderness to palpation, no step-offs or deformities. PSYCH: Normal mood, normal affect. SKIN: Warm, Dry, normal turgor, no rashes or lesions noted. Course - Re-evaluation Re-evalutation: 11/26/18 09:31 The fractures are unlikely with fall from standing position I am concerned by the fact that this pain radiates to the patient's chest although it is reproducible on palpation. X-rays of the thoracolumbar spine and the chest are negative. Pain is relieved with Toradol shot. Patient will be started on muscle relaxers and anti-inflammatories and discharged home. No evidence of cauda equina syndrome. - Vital Signs Vital signs: Temp Pulse Resp BP Pulse Ox 98.1 F 72 16 123/79 99 11/26/18 05:23 11/26/18 05:23 11/26/18 05:23 11/26/18 05:23 11/26/18 05:23 Discharge - Discharge Clinical Impression: Left-sided thoracolumbar muscle strain Left-sided thoracic back pain Qualifiers: Chronicity: acute Qualified Code(s): M54.6 - Pain in thoracic spine Condition: Stable Disposition: HOME, SELF-CARE Instructions: Muscle Strain ([facility]), Low Back Pain ([facility]) Prescriptions: Methocarbamol [Robaxin 750 mg Tablet] 1 - 2 mg PO Q8HP PRN #40 tablet PRN Reason: Muscle Spasms Referrals: MARAL ESPINOSA MD [Primary Care Provider] - Follow up as needed
[2018-11-26 10:04] VITALS: BP 149/78
== END 2018-11-26 10:05 | disposition home or self-care (01) ==
LOC: ER 05:19
DX: S39.012A Strain of muscle, fascia and tendon of lower back, initial encounter (principal); S29.012A Strain of muscle and tendon of back wall of thorax, initial encounter; M54.6 Pain in thoracic spine; R07.9 Chest pain, unspecified; W01.0XXA Fall on same level from slipping, tripping and stumbling without subsequent striking against object, initial encounter; Z87.892 Personal history of anaphylaxis; Z91.013 Allergy to seafood
CPT/HCPCS: 71046; 72110; 72070; J1885

== ENCOUNTER 2019-03-07 09:45 | Day surgery (SDC) | payer MEDICAID ==
[2019-03-05 09:28] LABS: HEMATOCRIT 40.8 % (37.9-51.0); HEMOGLOBIN 13.8 g/dL (13.5-17.0); MEAN CORPUSCULAR HEMOGLOBIN 29.6 pg (27.0-33.4); MEAN CORPUSCULAR HGB CONC 33.8 g/dL (32.0-36.0); MEAN CORPUSCULAR VOLUME 87 fl (80-97); PLATELET COUNT 239 10^3/uL (150-450); RED BLOOD COUNT 4.67 10^6/uL (4.35-5.55); RED CELL DISTRIBUTION WIDTH 13.3 % (11.5-14.0); WHITE BLOOD COUNT 6.8 10^3/uL (4.0-10.5)
[2019-03-07] MEDS ORDERED: MIDAZOLAM 2 MG/2 ML INJ ONE (11:51)
[2019-03-07] MEDS ORDERED: FENTANYL CITRATE INJ/PF 100 MCG/2 ML AMPUL ONE (11:51)
[2019-03-07] MEDS ORDERED: PROPOFOL INJ 200 MG/20 ML VIAL IV ONE (11:52)
[2019-03-07] MEDS ORDERED: LIDOCAINE 2% INJ (20 MG/ML) 20 ML MDV ONE (12:03)
--- NOTE | 2019-03-07 13:04 | Discharge Summary ---
Discharge Summary (SDC) - Discharge Final Diagnosis: Left posterior lateral chronic fistula in ano Date of Surgery: 03/07/19 Discharge Date: 03/07/19 Condition: Good Treatment or Instructions: See instructions post procedure guidelines; take stool softener; may shower; no strenuous physical activity for 6 weeks. Follow-up with [facility] Referrals: MARAL ESPINOSA MD [Primary Care Provider] - Discharge Diet: As Tolerated Discharge Activity: Other - No heavy strenuous physical activity Home Care Assistance: None Needed Report the Following to Your Physician Immediately: Shortness of Breath, Increase in Pain, Fever over 101 Degrees
[2019-03-07] MEDS ORDERED: ONDANSETRON HCL INJ/PF 4 MG/2 ML SDV ONE (13:09)
--- NOTE | 2019-03-07 13:13 | Operative Report ---
Operative Report DATE OF SURGERY: 03/07/19 PREOPERATIVE DIAGNOSIS: Chronic fistula in ano, left posterior lateral position, with existing draining seton POSTOPERATIVE DIAGNOSIS: Same OPERATION: 1. Exam under anesthesia. 2. Debridement of fistula exit site. 3. Insertion of fistula plug Biodesign by Jj SURGEON: JUAN CARLOS GLOVER ANESTHESIA: Spinal TISSUE REMOVED OR ALTERED: Granulation tissue COMPLICATIONS: None ESTIMATED BLOOD LOSS: Scant INTRAOPERATIVE FINDINGS: See below PROCEDURE: Patient was taken to the preop holding area to the main operating room and also more hospital where spinal anesthesia was induced. He was placed in the prone jackknife position buttock spread and taped widely. The buttocks and anal area prepped and draped with chlorhexidine. Surgical plan and surgical timeout conducted. The findings were significant for an existing umbilical tape seton in the left posterior lateral position. Of note previous documentation by Dr. Glover in June 2018 indicated right; this was incorrect. The fistula is on the left posterior lateral side. Significant scar tissue with distortion of the perianal tissue. The seton was removed. There was some heaped up granulation tissue at the exit site. The internal opening was approximately 4 cm proximal to the anal verge. Dentate line was somewhat distorted, however the tract opening appeared to be in the vicinity of the dentate line. We passed the proprietary Accolo brush and stented through the tract and debrided the tract per instructions. We now brought onto the field the biodesign fistula plug, and attached it to the the end of the proprietary brush and brought the brush out of the patient, bringing the fistula plug into position with the right side at the internal opening. We now secured the fistula plug to the anal canal using 2 interrupted 2-0 Vicryl sutures. These were full-thickness bites of mucosa, submucosa, and scar tissue. It was difficult to determine whether we were at the level of the sphincter, but my suspicion is that we were just above the sphincter. Once the sutures were se curely in place, they were pulled taut, essentially bearing the wide end of the plug into the anal wall. The mucosa satisfactorily covered the by the end of the plug. We sharply debrided some of the granulation tissue at the exit site with curette and 15 blade. Bleeding was minimal. We trimmed the fistula plug at the level of the skin. At this point we felt the operation was complete. Sponge and needle counts are correct. Patient was taken to recovery room in stable condition
[2019-03-07] MEDS ORDERED: DIPHENHYDRAMINE HCL 50 MG/ML VIAL IV PRN (13:44)
[2019-03-07] MEDS ORDERED: FENTANYL CITRATE INJ/PF 100 MCG/2 ML AMPUL IV PRN ×3 (13:44)
[2019-03-07] MEDS ORDERED: PROMETHAZINE HCL INJ 25 MG/1 ML VIAL IV PRN (13:44)
[2019-03-07] MEDS ORDERED: MEPERIDINE HCL/PF INJ 25 MG/1 ML DISP.SYRIN IV PRN (13:44)
[2019-03-07] MEDS ORDERED: MORPHINE SULFATE 10 MG/ML INJ IV PRN (13:44)
[2019-03-07] MEDS ORDERED: OXYCODONE-ACETAMINOPHEN 5-325 MG TABLET PO PRN ×2 (13:44)
[2019-03-07] MEDS ORDERED: ONDANSETRON HCL INJ/PF 4 MG/2 ML SDV IV PRN (13:44)
[2019-03-07 17:05] VITALS: BP 130/74
== END 2019-03-07 17:00 | disposition home or self-care (01) ==
LOC: OROUT 09:45
PROVIDERS: ATTEND Surgery
DX: K60.3 Anal fistula (principal); Z79.82 Long term (current) use of aspirin
CPT/HCPCS: 36415; 85027; 00902; 46707; 11042; J2250; J3490; J3010; J2405; J2704; 902

== ENCOUNTER 2019-08-23 00:52 | Observation (INO) | payer MEDICAID ==
[2019-08-23] MEDS ORDERED: ONDANSETRON HCL INJ/PF 4 MG/2 ML SDV IV ONE (01:59)
[2019-08-23] MEDS ORDERED: MORPHINE SULFATE 10 MG/ML INJ IV ONE (01:59)
[2019-08-23] MEDS ORDERED: NORMAL SALINE 1000 ML 1,000 ML IV ONE (01:59)
--- NOTE | 2019-08-23 02:02 | ER Document Report ---
ED General - General Stated Complaint: FISTULA PAIN Primary Care Provider: MARAL ESPINOSA MD [Primary Care Provider] - Follow up as needed Mode of Arrival: Ambulatory Information source: Patient Notes: Patient is a 44-year-old male presenting to the emergency department chief complaint of buttocks pain secondary to rectal fistula. Patient states that for the past 24 hours he has had severe pain to the left buttocks secondary to the fistula not draining. He states that on the way to the emergency department it seems to have loosened up and started draining he is still having moderate to severe pain. Patient states that he has seen general surgery multiple times at this location for similar complaints. Most recently in March. Patient denies any travel history trauma history or sick contacts. Patient states he did have a fever with Rigors however did not check his temperature numerically TRAVEL OUTSIDE OF THE [place] IN LAST 30 DAYS: No - HPI Onset: Yesterday Onset/Duration: Persistent, Worse Quality of pain: Burning, Throbbing Severity: Moderate Associated symptoms: Fever, Sweating Exacerbated by: Sitting, Movement, Walking, Deep breathing Relieved by: Denies Similar symptoms previously: Yes Recently seen / treated by doctor: Yes - Related Data Allergies/Adverse Reactions: shrimp Allergy (Verified 09/18/18 13:32) Anaphylaxis Past Medical History - General Information source: Patient - Social History Smoking Status: Unknown if Ever Smoked Chew tobacco use (# tins/day): No Frequency of alcohol use: None Drug Abuse: None Lives with: Family Family History: Reviewed & Not Pertinent Patient has suicidal ideation: No Patient has homicidal ideation: No - Past Medical History Cardiac Medical History: Denies: Hx Coronary Artery Disease, Hx Heart Attack, Hx Hypertension Pulmonary Medical History: Denies: Hx Asthma, Hx Bronchitis, Hx COPD, Hx Pneumonia Neurological Medical History: Denies: Hx Cerebrovascular Accident, Hx Seizures Endocrine Medical History: Denies: Hx Diabetes Mellitus Type 2 Renal/ Medical History: Denies: Hx Peritoneal Dialysis GI Medical History: Reports: Hx Colonoscopy. Denies: Hx Crohn's Disease Musculoskeletal Medical History: Denies Hx Arthritis Past Surgical History: Reports: Hx Rectal Surgery - fistulectomy, Other - Rectal fistula repair - Immunizations Hx Diphtheria, Pertussis, Tetanus Vaccination: No Review of Systems - Review of Systems Notes: REVIEW OF SYSTEMS: CONSTITUTIONAL : Denies fever, chills, or sweats. Denies recent illness. EENT: Denies eye, ear, throat, or mouth pain or symptoms. Denies nasal or sinus congestion. CARDIOVASCULAR: Denies chest pain. RESPIRATORY: Denies cough, cold, or chest congestion. Denies shortness of breath, difficulty breathing, or wheezing. GASTROINTESTINAL: HPI GENITOURINARY: Denies difficulty urinating, painful urination, burning, frequency, or blood in urine. MUSCULOSKELETAL: Denies neck or back pain or joint pain or swelling. SKIN: Denies rash or skin lesions. HEMATOLOGIC : Denies easy bruising or bleeding. NEUROLOGICAL: Denies altered mental status or loss of consciousness. Denies headache. Denies weakness or paralysis or loss of use of either side. Denies problems with gait or speech. Denies sensory or motor loss. PSYCHIATRIC: Denies suicidal or homicidal ideations 10 Systems are negative unless otherwise specified above Physical Exam - Vital signs Vitals: Temp 98.3 F 08/23/19 01:31 - Notes Notes: PHYSICAL EXAMINATION: GENERAL: Patient is a 44-year-old male in obvious discomfort and diaphoresis secondary to fever and pain. HEAD: Atraumatic, normocephalic. EYES: Pupils equal round and reactive to light, extraocular movements intact, sclera anicteric, conjunctiva are normal. ENT: nares patent, oropharynx clear without exudates. Moist mucous membranes. NECK: Normal range of motion, supple without lymphadenopathy, no appreciable JVD LUNGS: Lungs clear to auscultation bilaterally and equal. No wheezes rales or rhonchi. HEART: Tachycardic rate and rhythm without murmurs ABDOMEN: Soft, nontender, normal bowel sounds. No guarding, no rebound. No masses appreciated. Rectal: Patient has approximately 2 cm opening to the left buttocks which he states is secondary to a fistula. The site is mucopurulent and wound cultures are obtained and sent. The left buttocks is firm and tender to palpation. EXTREMITIES: Active full range of motion, no pitting or edema. No cyanosis. 2+ pulses x4 NEUROLOGICAL: No focal neurological deficits. Moves all extremities spontaneously and on command. SKIN: Warm, Dry, and intact. Normal turgor, no rashes or lesions noted. Course - Re-evaluation Re-evalutation: 08/23/19 05:29 Patient has been maintained on a ekg monitor tech while in the emergency department. Patient has remained stable and felt much relief after receiving antiemetics fluids and pain medication. I have spoken with Dr. Stout general surgery on-call advised him of the patient's findings of abscess between skin and rectum and requested admission he is agreeable. He did request Unasyn be initiated. Patient on reevaluation is resting comfortably in hospital bed. He is aware of the need and agreeable with admission. 08/23/19 05:30 - Vital Signs Vital signs: Temp Pulse Resp BP Pulse Ox 98.2 F 23 H 135/85 H 96 08/23/19 03:01 08/23/19 03:01 08/23/19 03:01 08/23/19 03:01 - Laboratory Result Diagrams: 08/23/19 01:55 08/23/19 01:55 Laboratory results interpreted by me: 08/23/19 01:55 Sodium 136.6 L Glucose 118 H - Diagnostic Test Radiology reviewed: Reports reviewed Discharge - Discharge Clinical Impression: Rectal abscess, Rectal fistula Condition: Stable Disposition: ADMITTED OBSERVATION Admitting Provider: Surgicalist Unit Admitted: Surgical Floor Referrals: MARAL ESPINOSA MD [Primary Care Provider] - Follow up as needed
[2019-08-23 02:15] LABS: ABSOLUTE EOSINOPHILS # (AUTO) 0.2 10^3/uL (0.0-0.6); ABSOLUTE LYMPHOCYTES (AUTO) 2.1 10^3/uL (0.5-4.7); ABSOLUTE MONOCYTES (AUTO) 1.1 10^3/uL (0.1-1.4); ABSOLUTE NEUT (AUTO) 5.2 10^3/uL (1.7-8.2); BASOPHILS % (AUTO) 0.5 % (0-2); EOSINOPHILS % (AUTO) 2.6 % (0-6); HEMATOCRIT 39.6 % (37.9-51.0); HEMOGLOBIN 13.7 g/dL (13.5-17.0); LYMPHOCYTES % (AUTO) 24.5 % (13-45); MEAN CORPUSCULAR HEMOGLOBIN 31.2 pg (27.0-33.4); MEAN CORPUSCULAR HGB CONC 34.6 g/dL (32.0-36.0); MEAN CORPUSCULAR VOLUME 90 fl (80-97); MONOCYTES % (AUTO) 12.7 % (3-13); PLATELET COUNT 217 10^3/uL (150-450); RED BLOOD COUNT 4.38 10^6/uL (4.35-5.55); SEGMENTED NEUTROPHILS % (AUTO) 59.7 % (42-78); TOTAL CELLS COUNTED % (AUTO) 100 %; WHITE BLOOD COUNT 8.8 10^3/uL (4.0-10.5)
[2019-08-23 02:18] LABS: APPEARANCE,URINE CLEAR; BILIRUBIN,URINE NEGATIVE (NEGATIVE); COLOR,URINE YELLOW; GLUCOSE, URINE NEGATIVE (NEGATIVE); KETONES,URINE NEGATIVE (NEGATIVE); LEUKOCYTE ESTERASE,URINE NEGATIVE (NEGATIVE); NITRITE,URINE NEGATIVE (NEGATIVE); PROTEIN,URINE NEGATIVE (NEGATIVE); URINE SPECIFIC GRAVITY 1.017; UROBILINOGEN,URINE NEGATIVE mg/dL (<2.0)
[2019-08-23 02:22] LABS: PROTHROMBIN TIME 14.2 SEC (11.4-15.4)
[2019-08-23 02:25] LABS: ALBUMIN 4.1 g/dL (3.5-5.0); ALKALINE PHOSPHATASE 86 U/L (38-126); ANION GAP 7 (5-19); ASPARTATE AMINO TRANSFERASE 30 U/L (17-59); BILIRUBIN,TOTAL 0.5 mg/dL (0.2-1.3); BLOOD UREA NITROGEN 20 mg/dL (7-20); CALCIUM 8.7 mg/dL (8.4-10.2); CARBON DIOXIDE 26 mmol/L (22-30); CHLORIDE 104 mmol/L (98-107); GLUCOSE 118 mg/dL (75-110); POTASSIUM 3.9 mmol/L (3.6-5.0); TOTAL PROTEIN 7.4 g/dL (6.3-8.2)
--- NOTE | 2019-08-23 04:26 | RADIOLOGY REPORT (SQ) ---
CLINICAL HISTORY: rectal fistula pain and drainage COMPARISON: 05/03/2017. There is a small collection of fluid and air in the left perirectal region measuring 3.6 x 1.8 cm. This extends to the medial subcutaneous tissues. TECHNIQUE: CT ABDOMEN PELVIS WITH IV CONTRAST on 08/23/2019 3:04 AM CDT This exam was performed according to our departmental dose-optimization program, which includes automated exposure control, adjustment of the mA and/or kV according to patient size and/or use of iterative reconstruction technique. FINDINGS: Lower lungs are clear. Abdomen: The liver is normal in appearance. There is no biliary dilatation. Gallbladder is normal in appearance. The pancreas and spleen are normal in appearance. The adrenal glands and kidneys are unremarkable. Abdominal aorta is normal in course and caliber without aneurysm. There is no free air. There is no retroperitoneal adenopathy. Pelvis: There is no bowel obstruction. Urinary bladder is unremarkable. There is no free fluid. Appendix is normal. Skeleton: There are no acute osseous findings. No suspicious bony lesions. IMPRESSION: Small perirectal/perianal abscess extending to the level of the skin medially.
[2019-08-23] MEDS ORDERED: AMPICILLIN SOD/SULBACTAM 3 GM VIAL IV ONE (05:30)
--- NOTE | 2019-08-23 06:35 | PDOC H&P ---
History of Present Illness Admission Date/PCP: 08/23/19 06:02 MARAL ESPINOSA MD History of Present Illness: JAMES FARIA is a 44 year old male presenting to the emergency department chief complaint of buttocks pain secondary to rectal fistula. Patient states that for the past 24 hours he has had severe pain to the left buttocks secondary to the fistula not draining. He states that on the way to the emergency department it seems to have loosened up and started draining he is still having moderate to severe pain. Patient states that he has seen general surgery multiple times at this location for similar complaints. Most recently in March. Patient denies any travel history trauma history or sick contacts. Patient states he did have a fever with Rigors however did not check his temperature numerically Past Medical History Cardiac Medical History: Denies: Coronary Artery Disease, Myocardial Infarction, Hypertension Pulmonary Medical History: Denies: Asthma, Bronchitis, Chronic Obstructive Pulmonary Disease (COPD), Pneumonia Neurological Medical History: Denies: Seizures Endocrine Medical History: Denies: Diabetes Mellitus Type 2 GI Medical History: Denies: Crohn's Disease Musculoskeltal Medical History: Denies: Arthritis Hematology: Denies: Anemia Past Surgical History Past Surgical History: Reports: Other - Rectal fistula repair recent fistula plug in Social History Lives with: Family Smoking Status: Unknown if Ever Smoked Electronic Cigarette use?: No Family History Family History: Reviewed & Not Pertinent Parental Family History Reviewed: No Children Family History Reviewed: NA Sibling(s) Family History Reviewed.: NA Medication/Allergy Home Medications: Diclofenac Sodium 75 mg PO BID 03/05/19 Naproxen Sodium [Aleve] 220 mg PO PRN 03/05/19 Allergies/Adverse Reactions: shrimp Allergy (Verified 09/18/18 13:32) Anaphylaxis Physical Exam Vital Signs: Temp Pulse Resp BP Pulse Ox 98.0 F 16 149/89 H 94 08/23/19 06:01 08/23/19 06:01 08/23/19 06:01 08/23/19 06:01 Intake & Output 08/21/19 08/22/19 08/23/19 06:59 06:59 06:59 Intake Total 1000 Output Total 1000 Balance 0 Weight 111.13 kg General appearance: PRESENT: mild distress Head exam: PRESENT: normocephalic Eye exam: PRESENT: EOMI Ear exam: PRESENT: normal external ear exam Mouth exam: PRESENT: moist Neck exam: PRESENT: full ROM Respiratory exam: PRESENT: clear to auscultation rio Cardiovascular exam: PRESENT: RRR Pulses: PRESENT: normal radial pulses, normal femoral pulses Vascular exam: PRESENT: normal capillary refill Breast: PRESENT: Normal GI/Abdominal exam: PRESENT: soft Rectal exam: PRESENT: tenderness - Tenderness to the left lateral perianal region with some swelling over the previous scar created for the fistula., other Gentrourinary exam: PRESENT: other Extremities exam: PRESENT: full ROM Neurological exam: PRESENT: alert, awake, oriented to person, oriented to place Psychiatric exam: PRESENT: appropriate affect Skin exam: PRESENT: dry Results Laboratory Results: 08/23/19 01:55 08/23/19 01:55 08/23/19 08/23/19 08/23/19 01:55 01:55 01:55 WBC 8.8 RBC 4.38 Hgb 13.7 Hct 39.6 MCV 90 MCH 31.2 MCHC 34.6 RDW 13.0 Plt Count 217 Seg Neutrophils % 59.7 Sodium 136.6 L Potassium 3.9 Chloride 104 Carbon Dioxide 26 Anion Gap 7 BUN 20 Creatinine 0.97 Est GFR ( Amer) > 60 Glucose 118 H Lactic Acid Calcium 8.7 Total Bilirubin 0.5 AST 30 Alkaline Phosphatase 86 Total Protein 7.4 Albumin 4.1 Lipase 101.6 Urine Color YELLOW Urine Appearance CLEAR Urine pH 8.0 Ur Specific [place] 1.017 Urine Protein NEGATIVE Urine Glucose (UA) NEGATIVE Urine Ketones NEGATIVE Urine Blood NEGATIVE Urine Nitrite NEGATIVE Ur Leukocyte Esterase NEGATIVE Urine WBC (Auto) 0 Urine RBC (Auto) 1 08/23/19 03:02 WBC RBC Hgb Hct MCV MCH MCHC RDW Plt Count Seg Neutrophils % Sodium Potassium Chloride Carbon Dioxide Anion Gap BUN Creatinine Est GFR ( Amer) Glucose Lactic Acid 0.8 Calcium Total Bilirubin AST Alkaline Phosphatase Total Protein Albumin Lipase Urine Color Urine Appearance Urine pH Ur Specific [place] Urine Protein Urine Glucose (UA) Urine Ketones Urine Blood Urine Nitrite Ur Leukocyte Esterase Urine WBC (Auto) Urine RBC (Auto) Impressions: Abdomen/Pelvis CT 08/23/19 03:04 IMPRESSION: Small perirectal/perianal abscess extending to the level of the skin medially. Assessment & Plan - Plan Summary Plan Summary: Impression is perirectal abscess recurrence left side Plan is for admission to the hospital IV antibiotics we will schedule for exam under anesthesia and possible drainage of perirectal abscess.
[2019-08-23] MEDS ORDERED: GLYCOPYRROLATE 1 MG/5 ML VIAL ONE (09:52)
[2019-08-23] MEDS ORDERED: NEOSTIGMINE METHYLSULFATE 10 MG/10 ML VIAL ONE (09:52)
[2019-08-23] MEDS ORDERED: ROCURONIUM BROMIDE INJ 50 MG/5 ML VIAL IV ONE (09:52)
[2019-08-23] MEDS ORDERED: ONDANSETRON HCL INJ/PF 4 MG/2 ML SDV ONE (09:52)
[2019-08-23] MEDS ORDERED: LIDOCAINE 2% INJ-PF (20 MG/ML) 2 ML AMPUL ONE (09:52)
[2019-08-23] MEDS ORDERED: KETOROLAC TROMETHAMINE 60 MG/2 ML SDV ONE (09:52)
[2019-08-23] MEDS ORDERED: SUCCINYLCHOLINE CHLORIDE INJ 200 MG/10 ML VIAL ONE (09:52)
--- NOTE | 2019-08-23 13:30 | PDOC PROGRESS REPORT ---
Subjective Progress Note for:: 08/23/19 Subjective:: Complaint of pain at the left perianal region. 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 Patient had a fistula plug procedure done most recently but without success. Patient has noted in the last several days increasing pain in the left perianal region with temporary stoppage of drainage in his perianal region. Reason For Visit: RECTAL ABSCESS Physical Exam Vital Signs: Temp Pulse Resp BP Pulse Ox 98.6 F 57 L 18 116/73 96 08/23/19 09:27 08/23/19 09:27 08/23/19 09:27 08/23/19 09:27 08/23/19 09:27 Intake & Output 08/22/19 08/23/19 08/24/19 06:59 06:59 06:59 Intake Total 1000 Output Total 1000 250 Balance 0 -250 Weight 111.13 kg 117.1 kg General appearance: PRESENT: no acute distress, cooperative Respiratory exam: PRESENT: clear to auscultation rio Cardiovascular exam: PRESENT: RRR Rectal exam: PRESENT: other - Scar noted at the left perianal region with contracture and a opening with no drainage at this time but tenderness in this area. Digital rectal exam not performed. No crepitus. Results Laboratory Results: 08/23/19 01:55 08/23/19 01:55 08/23/19 08/23/19 08/23/19 01:55 01:55 01:55 WBC 8.8 RBC 4.38 Hgb 13.7 Hct 39.6 MCV 90 MCH 31.2 MCHC 34.6 RDW 13.0 Plt Count 217 Seg Neutrophils % 59.7 Sodium 136.6 L Potassium 3.9 Chloride 104 Carbon Dioxide 26 Anion Gap 7 BUN 20 Creatinine 0.97 Est GFR ( Amer) > 60 Glucose 118 H Lactic Acid Calcium 8.7 Total Bilirubin 0.5 AST 30 Alkaline Phosphatase 86 Total Protein 7.4 Albumin 4.1 Lipase 101.6 Urine Color YELLOW Urine Appearance CLEAR Urine pH 8.0 Ur Specific [place] 1.017 Urine Protein NEGATIVE Urine Glucose (UA) NEGATIVE Urine Ketones NEGATIVE Urine Blood NEGATIVE Urine Nitrite NEGATIVE Ur Leukocyte Esterase NEGATIVE Urine WBC (Auto) 0 Urine RBC (Auto) 1 08/23/19 03:02 WBC RBC Hgb Hct MCV MCH MCHC RDW Plt Count Seg Neutrophils % Sodium Potassium Chloride Carbon Dioxide Anion Gap BUN Creatinine Est GFR ( Amer) Glucose Lactic Acid 0.8 Calcium Total Bilirubin AST Alkaline Phosphatase Total Protein Albumin Lipase Urine Color Urine Appearance Urine pH Ur Specific [place] Urine Protein Urine Glucose (UA) Urine Ketones Urine Blood Urine Nitrite Ur Leukocyte Esterase Urine WBC (Auto) Urine RBC (Auto) Impressions: Abdomen/Pelvis CT 08/23/19 03:04 IMPRESSION: Small perirectal/perianal abscess extending to the level of the skin medially. Assessment & Plan - Diagnosis (1) Perirectal abscess Is this a current diagnosis for this admission?: Yes Plan: In the setting of longstanding fistula in ano. Patient has undergone multiple procedures in the past without success. Patient requests if feasible, removal of fistula plug that was placed several months ago since he has not had good results with this procedure. I will plan exam under anesthesia with perirectal abscess drainage and possible fistula plug removal as per patient request. Possible seton placement. Patient requests that if the seton is able to be placed that a non-rubber rubber seton be used since a rubber seton caused considerable amount of pain for unclear reasons in the past. He understands that the main purpose of this surgery is for abscess drainage and certainly is not definitive treatment for his fistula. He may benefit from a rectal advance ment flap after he has recovered from his abscess. We will plan to make appropriate referral for this procedure at discharge. Understands risk and benefits of the procedure including risk of fecal incontinence, high risk of recurrence, distinct risk that I cannot remove the fistula plug.
[2019-08-23] MEDS ORDERED: BUPIVACAINE HCL 0.25% /EPINEPHRINE INJ/PF 30 ML SDV ONE (13:50)
[2019-08-23] MEDS ORDERED: MIDAZOLAM 2 MG/2 ML INJ ONE (13:56)
[2019-08-23] MEDS ORDERED: FENTANYL CITRATE INJ/PF 100 MCG/2 ML AMPUL ONE (13:56)
[2019-08-23] MEDS ORDERED: PROPOFOL INJ 200 MG/20 ML VIAL IV ONE (13:59)
[2019-08-23] MEDS ORDERED: AMPICILLIN SOD/SULBACTAM 1.5 GM VIAL ONE (14:12)
[2019-08-23] MEDS ORDERED: METRONIDAZOLE 500 MG/NS RTU 500 MG/100 ML RTUPB IV ONE (14:12)
[2019-08-23] MEDS ORDERED: PROMETHAZINE HCL INJ 25 MG/1 ML VIAL IV PRN (15:40)
[2019-08-23] MEDS ORDERED: FENTANYL CITRATE INJ/PF 100 MCG/2 ML AMPUL IV PRN ×3 (15:40)
[2019-08-23] MEDS ORDERED: MEPERIDINE HCL/PF INJ 25 MG/1 ML DISP.SYRIN IV PRN (15:40)
[2019-08-23] MEDS ORDERED: MORPHINE SULFATE 10 MG/ML INJ IV PRN ×2 (15:40→15:42)
[2019-08-23] MEDS ORDERED: DIPHENHYDRAMINE HCL 50 MG/ML VIAL IV PRN (15:40)
--- NOTE | 2019-08-23 15:41 | Operative Report ---
Operative Report DATE OF SURGERY: 08/23/19 PREOPERATIVE DIAGNOSIS: Perirectal abscess. POSTOPERATIVE DIAGNOSIS: Perirectal abscess. OPERATION: Exam under anesthesia. Perirectal abscess drainage. SURGEON: CRAIG WRIGHT ANESTHESIA: GA TISSUE REMOVED OR ALTERED: Pus sent for Gram stain and culture COMPLICATIONS: None ESTIMATED BLOOD LOSS: Minimal INTRAOPERATIVE FINDINGS: Abscess cavity several centimeters cephalad from chronic fistulous skin opening at the left posterior perirectal region. Opening seen in the anal canal about 2 cm above the anal verge at the left posterior region but could not feel a connection to the abscess that connected to a chronic track at the perianal skin. Fistula plug not visible. PROCEDURE: Informed consent was obtained. Patient was brought to the operating room and general anesthesia was induced. Patient was placed in a prone position and his buttocks taped apart. Exam under anesthesia was performed. Patient had a sense of firmness along the left perianal and perirectal region on digital rectal exam and with the digital rectal exam pus extruded from a chronic scar it is posterior left perianal region. This entire area felt firm and scarred on external exam. The pus was sent for Gram stain and culture. Using a Hill- Vasquez retractor, the anal canal region was visualized. Couple of centimeters cephalad to the anal verge in the anal canal there was a small opening that was visible but no visible fistula plug. I could send a probe partially through this opening and there I met some resistance. I was able to send a probe easily through the opening at the external perianal skin scar into an apparent abscess cavity. This opening was then widened by dilating gradually using a Judy clamp. This tract was open widely by opening the Judy clamp taking great care to avoid creating new track. Despite multiple gentle attempts, I could not connect the abscess cavity to the internal opening. Therefore no seton could be safely placed. The abscess cavity was irrigated. A M[place] drain was placed up through the tract from the external opening to the abscess cavity and it was sutured to the skin with a chromic suture. Marcaine was injected at the perianal region. Patient tolerated procedure well with no apparent complication s and was taken to the recovery area in stable condition.
[2019-08-23] MEDS ORDERED: NORMAL SALINE 1000 ML 1,000 ML IV PRN (15:42)
[2019-08-23] MEDS ORDERED: DOCUSATE SODIUM 100 MG CAPSULE PO SCH (18:00)
[2019-08-23] MEDS: METRONIDAZOLE 500 MG/NS RTU 500 MG/100 ML RTUPB IV SCH (21:31)
[2019-08-23] MEDS: AMPICILLIN SODIUM/SULBACTAM NA 3 GM in NORMAL SALINE 100 ML IV SCH (23:21)
[2019-08-24] MEDS: METRONIDAZOLE 500 MG/NS RTU 500 MG/100 ML RTUPB IV SCH ×2 (04:11→08:48)
[2019-08-24] MEDS: AMPICILLIN SODIUM/SULBACTAM NA 3 GM in NORMAL SALINE 100 ML IV SCH (05:50)
[2019-08-24 08:46] VITALS: BP 123/73
--- NOTE | 2019-08-24 08:47 | PDOC DISCHARGE SUMMARY ---
General - Admit/Disc Date/PCP Admission Date/Primary Care Provider: 08/23/19 06:02 MARAL ESPINOSA MD Discharge Date: 08/24/19 - Discharge Diagnosis Final Diagnosis: Left perianal abscess; chronic fistula in ano - Assessment Summary: Patient is a 44-year-old male well-known to the acute care surgery service, status post 14 previous drainage, seton, debridement and other procedures related to a left lateral perianal abscess. Approximately 6 months ago patient underwent fistula plug insertion and did well until recently when he developed a persisting pain, drainage from his chronic perianal skin site. Urgency department because of pain, found to have elevated white blood cell count CT scan findings consistent with a brennon-anal versus rectal abscess. He was admitted to the acute care service for management. Patient was taken to the operating room by Dr. Terry Awan on 08/23/2019 where he underwent exam under anesthesia, drainage of perianal abscess with [place] drain insertion. The entire fistula tract was not opened. Patient tolerated procedure well, and the following morning was feeling much better, and desiring discharge home. - Additional Information Resuscitation Status: Full Code Referrals: MARAL ESPINOSA MD [Primary Care Provider] - Follow up as needed Home Medications: Diclofenac Sodium 75 mg PO BID 03/05/19 History of Present Illiness History of Present Illness: JAMES FARIA is a 44 year old male Physical Exam Vital Signs: Temp Pulse Resp BP Pulse Ox 98.3 F 89 16 124/75 96 08/23/19 23:28 08/23/19 23:28 08/23/19 23:28 08/23/19 23:28 08/23/19 23:28 Intake & Output 08/23/19 08/24/19 08/25/19 06:59 06:59 06:59 Intake Total 1000 2620 Output Total 1000 2070 Balance 0 550 Weight 111.13 kg 120.1 kg Results Laboratory Results: WBC 8.8 10^3/uL (4.0-10.5) 08/23/19 01:55 RBC 4.38 10^6/uL (4.35-5.55) 08/23/19 01:55 Hgb 13.7 g/dL (13.5-17.0) 08/23/19 01:55 Hct 39.6 % (37.9-51.0) 08/23/19 01:55 MCV 90 fl (80-97) 08/23/19 01:55 MCH 31.2 pg (27.0-33.4) 08/23/19 01:55 MCHC 34.6 g/dL (32.0-36.0) 08/23/19 01:55 RDW 13.0 % (11.5-14.0) 08/23/19 01:55 Plt Count 217 10^3/uL (150-450) 08/23/19 01:55 Lymph % (Auto) 24.5 % (13-45) 08/23/19 01:55 Runnels % (Auto) 12.7 % (3-13) 08/23/19 01:55 Eos % (Auto) 2.6 % (0-6) 08/23/19 01:55 Baso % (Auto) 0.5 % (0-2) 08/23/19 01:55 Absolute Neuts (auto) 5.2 10^3/uL (1.7-8.2) 08/23/19 01:55 Absolute Lymphs (auto) 2.1 10^3/uL (0.5-4.7) 08/23/19 01:55 Absolute Monos (auto) 1.1 10^3/uL (0.1-1.4) 08/23/19 01:55 Absolute Eos (auto) 0.2 10^3/uL (0.0-0.6) 08/23/19 01:55 Absolute Basos (auto) 0.0 10^3/uL (0.0-0.2) 08/23/19 01:55 Seg Neutrophils % 59.7 % (42-78) 08/23/19 01:55 PT 14.2 SEC (11.4-15.4) 08/23/19 01:55 INR 1.10 08/23/19 01:55 Sodium 136.6 mmol/L (137-145) L 08/23/19 01:55 Potassium 3.9 mmol/L (3.6-5.0) 08/23/19 01:55 Chloride 104 mmol/L (98-107) 08/23/19 01:55 Carbon Dioxide 26 mmol/L (22-30) 08/23/19 01:55 Anion Gap 7 (5-19) 08/23/19 01:55 BUN 20 mg/dL (7-20) 08/23/19 01:55 Creatinine 0.97 mg/dL (0.52-1.25) 08/23/19 01:55 Est GFR ( Amer) > 60 (>60) 08/23/19 01:55 Est GFR (MDRD) Non-Af > 60 (>60) 08/23/19 01:55 Glucose 118 mg/dL (75-110) H 08/23/19 01:55 Lactic Acid 0.8 mmol/L (0.7-2.1) 08/23/19 03:02 Calcium 8.7 mg/dL (8.4-10.2) 08/23/19 01:55 Total Bilirubin 0.5 mg/dL (0.2-1.3) 08/23/19 01:55 Direct Bilirubin 0.0 mg/dL (0.0-0.4) 08/23/19 01:55 Neonat Total Bilirubin Not Reportable 08/23/19 01:55 Neonat Direct Bilirubin Not Reportable 08/23/19 01:55 Neonat Indirect Bili Not Reportable 08/23/19 01:55 AST 30 U/L (17-59) 08/23/19 01:55 ALT 35 U/L (<50) 08/23/19 01:55 Alkaline Phosphatase 86 U/L (38-126) 08/23/19 01:55 Total Protein 7.4 g/dL (6.3-8.2) 08/23/19 01:55 Albumin 4.1 g/dL (3.5-5.0) 08/23/19 01:55 Lipase 101.6 U/L (23-300) 08/23/19 01:55 Urine Color YELLOW 08/23/19 01:55 Urine Appearance CLEAR 08/23/19 01:55 Urine pH 8.0 (5.0-9.0) 08/23/19 01:55 Ur Specific [place] 1.017 08/23/19 01:55 Urine Protein NEGATIVE mg/dL (NEGATIVE) 08/23/19 01:55 Urine Glucose (UA) NEGATIVE mg/dL (NEGATIVE) 08/23/19 01:55 Urine Ketones NEGATIVE mg/dL (NEGATIVE) 08/23/19 01:55 Urine Blood NEGATIVE (NEGATIVE) 08/23/19 01:55 Urine Nitrite NEGATIVE (NEGATIVE) 08/23/19 01:55 Urine Bilirubin NEGATIVE (NEGATIVE) 08/23/19 01:55 Urine Urobilinogen NEGATIVE mg/dL (<2.0) 08/23/19 01:55 Ur Leukocyte Esterase NEGATIVE (NEGATIVE) 08/23/19 01:55 Urine WBC (Auto) 0 /HPF 08/23/19 01:55 Urine RBC (Auto) 1 /HPF 08/23/19 01:55 Urine Mucus (Auto) RARE /LPF 08/23/19 01:55 Urine Ascorbic Acid NEGATIVE (NEGATIVE) 08/23/19 01:55 SARS-CoV-2 (PCR) NEGATIVE (NEGATIVE) 08/23/19 07:45 Impressions: Abdomen/Pelvis CT 08/23/19 03:04 IMPRESSION: Small perirectal/perianal abscess extending to the level of the skin medially.
== END 2019-08-24 09:05 | disposition home or self-care (01) ==
LOC: ER 00:52 → EH 06:02 → 5 09:23
PROVIDERS: ATTEND Surgery
DX: K61.1 Rectal abscess (principal); K61.0 Anal abscess; Z98.890 Other specified postprocedural states; R50.9 Fever, unspecified; R61 Generalized hyperhidrosis; D72.829 Elevated white blood cell count, unspecified; Z03.818 Encounter for observation for suspected exposure to other biological agents ruled out
CPT/HCPCS: 46040; 99285; 96361; 96375; 96365; 36415; 87040; 87070; 87205; 83605; 83690; 85025; 85610; 87635; 87075; 87077; 80053; 81001; 87186; 74177; 99140; 00902; G0378 ×2; C1729; J2250; J3490 ×9; J1885; J3010; J0295 ×3; J2270; J2710; J0330; J2405; J7050 ×2; J7030; J2704; C9803; 902

== ENCOUNTER 2019-10-06 19:37 | Emergency (ER) | payer MEDICAID ==
[2019-10-06] MEDS ORDERED: ONDANSETRON HCL INJ/PF 4 MG/2 ML SDV IV ONE (19:56)
[2019-10-06] MEDS ORDERED: MORPHINE SULFATE 10 MG/ML INJ IV ONE ×2 (19:56→22:12)
--- NOTE | 2019-10-06 19:59 | ER Document Report ---
ED Medical Screen (RME) - General Chief Complaint: Post Surgical Pain Stated Complaint: BUTTOCKS PAIN Time Seen by Provider: 10/06/19 19:54 Primary Care Provider: MARAL ESPINOSA MD [Primary Care Provider] - Follow up as needed Mode of Arrival: Ambulatory Information source: Patient Notes: HPI; 44-year-old male presents emergency room complaining of rectal pain and stool leaking around a recent surgery for a fistula repair which he had done 4 days ago at [facility] by Dr. Hardwick. States he has had a total of 17 rectal surgeries for fistulas in the past 4 years. Has been taking Aleve and ibuprofen for pain without relief. He states every time he has a bowel movement the stool is leaking out through the surgical site. States he saw his surgeon 2 days ago who told him that the stool was around the anus. States that he did not do an exam. States the pain was so severe today he came to the emergency room. He denies any nausea, no vomiting. PE: Alert and oriented x3. Moderate distress noted. Lungs: Clear to auscultation without rales, rhonchi, wheezes. Heart: Regular rate and rhythm without murmurs, rubs, gallops. I have greeted and performed a rapid initial assessment of this patient. A comprehensive ED assessment and evaluation of the patient, analysis of test results and completion of the medical decision making process will be conducted by additional ED providers. I have specifically instructed the patient or family members with the patient to immediately return to any nursing staff should anything change in the patient's condition or with their chief complaint. TRAVEL OUTSIDE OF THE [place] 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 Past Medical History - Past Medical History Cardiac Medical History: Denies: Hx Coronary Artery Disease, Hx Heart Attack, Hx Hypertension Pulmonary Medical History: Denies: Hx Asthma, Hx Bronchitis, Hx COPD, Hx Pneumonia Neurological Medical History: Denies: Hx Cerebrovascular Accident, Hx Seizures Endocrine Medical History: Denies: Hx Diabetes Mellitus Type 2 Renal/ Medical History: Denies: Hx Peritoneal Dialysis GI Medical History: Reports: Hx Colonoscopy. Denies: Hx Crohn's Disease Musculoskeltal Medical History: Denies Hx Arthritis Psychiatric Medical History: Denies: Hx Depression Past Surgical History: Reports: Hx Rectal Surgery - fistulectomy, Other - Rectal fistula repair recent fistula plug in - Immunizations Hx Diphtheria, Pertussis, Tetanus Vaccination: No Doctor's Discharge - Discharge Referrals: MARAL ESPINOSA MD [Primary Care Provider] - Follow up as needed
[2019-10-06 21:45] LABS: ABSOLUTE EOSINOPHILS # (AUTO) 0.2 10^3/uL (0.0-0.6); ABSOLUTE LYMPHOCYTES (AUTO) 2.6 10^3/uL (0.5-4.7); ABSOLUTE MONOCYTES (AUTO) 1.4 10^3/uL (0.1-1.4); ABSOLUTE NEUT (AUTO) 4.5 10^3/uL (1.7-8.2); BASOPHILS % (AUTO) 0.6 % (0-2); EOSINOPHILS % (AUTO) 2.3 % (0-6); HEMATOCRIT 41.3 % (37.9-51.0); HEMOGLOBIN 14.1 g/dL (13.5-17.0); MEAN CORPUSCULAR HEMOGLOBIN 30.2 pg (27.0-33.4); MEAN CORPUSCULAR HGB CONC 34.1 g/dL (32.0-36.0); MEAN CORPUSCULAR VOLUME 89 fl (80-97); MONOCYTES % (AUTO) 15.7 % (3-13); PLATELET COUNT 277 10^3/uL (150-450); RED BLOOD COUNT 4.66 10^6/uL (4.35-5.55); RED CELL DISTRIBUTION WIDTH 12.3 % (11.5-14.0); SEGMENTED NEUTROPHILS % (AUTO) 51.4 % (42-78); TOTAL CELLS COUNTED % (AUTO) 100 %; WHITE BLOOD COUNT 8.8 10^3/uL (4.0-10.5)
--- NOTE | 2019-10-06 22:03 | ER Document Report ---
ED General - General Chief Complaint: Post Surgical Pain Stated Complaint: BUTTOCKS PAIN Time Seen by Provider: 10/06/19 19:54 Primary Care Provider: MARAL ESPINOSA MD [Primary Care Provider] - Follow up as needed Mode of Arrival: Ambulatory Notes: Patient is a 44-year-old male that comes emergency department for chief complaint of postoperative pain. Patient had a rectal fistula repair by Dr. Hardwick at [facility] in [place] 4 days ago (10/02/2019). He states that he was seen 2 days ago because he was concerned about stool leaking around the site. Patient states this is worsened and he had 3 bowel movements today, he states with each bowel movement he has stool passage from both the anus and an area far lateral in the incision. He states this is very painful w hen it happens and he is concerned that there is stool leaking from a fistula or another complication. He denies vomiting, fever, injury, bleeding beyond what is expected. He states he is on ibuprofen for pain, he states he was unable to fill his pain medication because he could not get to the pharmacy. He takes no other medications. He denies any other medical history although he does state t hat this is the 17th time that he has had rectal surgery for fistula repair. TRAVEL OUTSIDE OF THE [place] 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 Home Medications: aleve/ibuprofen Past Medical History - General Information source: Patient - Social History Smoking Status: Never Smoker Chew tobacco use (# tins/day): No Frequency of alcohol use: None Drug Abuse: None Lives with: Family Family History: Reviewed & Not Pertinent Patient has homicidal ideation: No - Past Medical History Cardiac Medical History: Denies: Hx Coronary Artery Disease, Hx Heart Attack, Hx Hypertension Pulmonary Medical History: Denies: Hx Asthma, Hx Bronchitis, Hx COPD, Hx Pneumonia Neurological Medical History: Denies: Hx Cerebrovascular Accident, Hx Seizures Endocrine Medical History: Denies: Hx Diabetes Mellitus Type 2 Renal/ Medical History: Denies: Hx Peritoneal Dialysis GI Medical History: Reports: Hx Colonoscopy. Denies: Hx Crohn's Disease Musculoskeletal Medical History: Denies Hx Arthritis Psychiatric Medical History: Denies: Hx Depression Past Surgical History: Reports: Hx Rectal Surgery - fistulectomy, Other - Rectal fistula repair recent fistula plug in - Immunizations Hx Diphtheria, Pertussis, Tetanus Vaccination: No Review of Systems - Review of Systems Constitutional: No symptoms reported EENT: No symptoms reported Cardiovascular: No symptoms reported Respiratory: No symptoms reported Gastrointestinal: See HPI Genitourinary: No symptoms reported Male Genitourinary: No symptoms reported Musculoskeletal: No symptoms reported Skin: See HPI Hematologic/Lymphatic: No symptoms reported Neurological/Psychological: No symptoms reported Physical Exam - Vital signs Vitals: Temp Pulse Resp BP Pulse Ox 98.7 F 78 20 141/98 H 98 10/06/19 19:57 10/06/19 19:57 10/06/19 19:57 10/06/19 19:57 10/06/19 19:57 - Notes Notes: GENERAL: Alert, interacts well. Discomfort with moving but otherwise in no distress HEAD: Normocephalic, atraumatic. EYES: Pupils equal, round, and reactive to light. Extraocular movements intact. ENT: Oral mucosa moist, tongue midline. Oropharynx unremarkable. Airway patent. NECK: Full range of motion. Supple. Trachea midline. No lymphadenopathy. LUNGS: Clear to auscultation bilaterally, no wheezes, rales, or rhonchi. No respiratory distress. Non-tender chest wall. HEART: Regular rate and rhythm. No murmur ABDOMEN: Soft, non-tender. Non-distended. RECTAL: Anal exam unremarkable, there however is a extensive laceration that is approximately 5 cm long or so deep into the tissue of the left buttock extending from the perianal area outwards. There is no significant erythema, tenderness, no current bleeding or purulent discharge, no other concerning findings noted. Exam performed with Agnes PARSONS at bedside. EXTREMITIES: Moves all 4 extremities spontaneously. No edema, normal radial and dorsalis pedis pulses bilaterally. No cyanosis. BACK: no cervical, thoracic, lumbar midline tenderness. No saddle anesthesia, normal distal neurovascular exam. Moves all extremities in full range of motion. NEUROLOGICAL: Alert and oriented x3. Normal speech. Cranial nerves II through XII grossly intact. Strength 5/5 in all extremities. PSYCH: Normal affect, normal mood. SKIN: Warm, dry, normal turgor. No rashes or lesions noted. Course - Re-evaluation Re-evalutation: Patient with a gaping postsurgical wound although this is clean, not bleeding, there is no foul smell or purulent discharge, there is no surrounding erythema. No fever. No leukocytosis. Lab work-up unremarkable. I did review his CAT scan from triage and this shows no overt concerning finding, especially no abscess or overt fistula. I discussed with patient. Patient is much more comfortable after pain medication. I called twice to attempt to speak with his surgeon correspondent, however nobody was answering the phone when I tried to contact the number the patient had and the office phone line. Patient states this is typical because this is an office not a hospital system, he requests to be discharged, request a copy of his CAT scan with CD, states appreciation for evaluation. Patient states he will call in the morning for close follow-up and additional management. Discussed return precautions. Patient states understanding and agreement. - Vital Signs Vital signs: Temp Pulse Resp BP Pulse Ox 98.7 F 82 16 140/80 H 97 10/07/19 00:01 10/07/19 00:01 10/07/19 00:01 10/07/19 00:01 10/07/19 00:01 - Laboratory Result Diagrams: 10/06/19 21:25 10/06/19 21:25 Laboratory results interpreted by me: 10/06/19 21:25 Rolette % (Auto) 15.7 H Discharge - Discharge Clinical Impression: Post-op pain Condition: Stable Disposition: HOME, SELF-CARE Additional Instructions: Your evaluation here is reassuring. Fill and take your pain medications. Please call your surgeon on Tuesday and show them the report and CD of the CAT scan performed tonight for additional management. Return if you worsen including developing a fever, developing discolored drainage, severe worsening pain, vomiting, or any other concerning symptoms. Referrals: MARAL ESPINOSA MD [Primary Care Provider] - Follow up as needed
[2019-10-06 22:06] LABS: ALBUMIN 4.4 g/dL (3.5-5.0); ALKALINE PHOSPHATASE 78 U/L (38-126); ANION GAP 9 (5-19); ASPARTATE AMINO TRANSFERASE 30 U/L (17-59); BILIRUBIN,TOTAL 0.5 mg/dL (0.2-1.3); BLOOD UREA NITROGEN 17 mg/dL (7-20); CALCIUM 8.9 mg/dL (8.4-10.2); CARBON DIOXIDE 25 mmol/L (22-30); CHLORIDE 107 mmol/L (98-107); GLUCOSE 100 mg/dL (75-110); POTASSIUM 4.6 mmol/L (3.6-5.0); TOTAL PROTEIN 7.9 g/dL (6.3-8.2)
--- NOTE | 2019-10-06 22:35 | RADIOLOGY REPORT (SQ) ---
EXAM DESCRIPTION: RadLex: CT PELVIS WITH IV CONTRAST CLINICAL HISTORY: 44 years Male; rectal pain TECHNIQUE: CT of the pelvis with contrast. All CT scans at this facility use dose modulation, iterative reconstruction, and/or weight based dosing when appropriate to reduce radiation dose to as low as reasonably achievable. COMPARISON: None. FINDINGS: Pelvis: In the medial left buttock, extending to the anus, there is soft tissue thickening/edema. Foci of subcutaneous air are noted in the midst of the soft tissue thickening. The thickened tissue is similar to the 08/23/2019 exam, likely chronic fibrosis. No drainable fluid collections are identified. No proximal perirectal edema is demonstrated. Small bowel:No significant distention. Appendix:Within normal limits Colon:No distention or acute pericolonic edema. No free intraperitoneal fluid or air. Bones: No acute bone findings. Bladder: Unremarkable. No pelvic mass or adenopathy. Note that evaluation of the bowel and vasculature is somewhat limited due to lack of intravenous and oral contrast. IMPRESSION: 1. Foci of subcutaneous air in the medial left buttock, in the same wound/fibrosis that was seen on 08/23/2019. 2. No focal fluid collections (no drainable abscess). 3. No acute intraperitoneal findings.
[2019-10-06] MEDS ORDERED: HYDROCODONE/ACETAMINOPHEN 5-325 MG (6 TAB/ER DISP) PO PRN (23:34)
[2019-10-07 00:02] VITALS: BP 140/80
== END 2019-10-07 00:02 | disposition home or self-care (01) ==
LOC: ER 19:37
DX: G89.18 Other acute postprocedural pain (principal); K62.89 Other specified diseases of anus and rectum; Z79.1 Long term (current) use of non-steroidal anti-inflammatories (NSAID); Z87.892 Personal history of anaphylaxis; Z91.013 Allergy to seafood
CPT/HCPCS: 96376; 99285; 96374; 96375; 36415; 85025; 80053; 72193; J2270; J2405

== ENCOUNTER 2019-10-09 16:54 | Emergency (ER) | payer MEDICAID ==
[2019-10-09 17:03] VITALS: BP 150/85
[2019-10-09] MEDS ORDERED: HYDROCODONE/ACETAMINOPHEN 5-325 MG TABLET PO ONE (17:53)
--- NOTE | 2019-10-09 18:03 | ER Document Report ---
ED Medical Screen (RME) - General Chief Complaint: Post Surgical Pain Stated Complaint: POST OP PAIN/FISTULOTOMY Time Seen by Provider: 10/09/19 17:43 Primary Care Provider: MARAL ESPINOSA MD [Primary Care Provider] - Follow up as needed TRAVEL OUTSIDE OF THE [place] IN LAST 30 DAYS: No - HPI Notes: 10/09/19 17:58 44 yr old male presents to the emergency room for complaints of severe pain and stool draining from his fistula instead of his anus after having a fistulotomy and a partial fistulectomy on October 02, [address] Landa in [place], [place]. Patient states that he has had 17 surgeries in 6 years and changed 6 surgical doctors for this fistula in issue in his rectum. Patient states that his pain is 5 out of 5. Patient denies any melena. Reports severe pain due to the acidity of his loose stool. Has not contacted his surgeon because he supposed to be seeing him tomorrow but the pain is so severe he cannot wait until tomorrow. 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 Denies any fevers or chills, denies any nausea vomiting, reports loose stool. I have greeted and performed a rapid initial assessment of this patient. A comprehensive ED assessment and evaluation of the patient, analysis of test results and completion of the medical decision making process will be conducted by additional ED providers. PHYSICAL EXAMINATION: GENERAL: Well-appearing, well-nourished and in mild distress. HEAD: Atraumatic, normocephalic. 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 Denies: Hx Crohn's Disease Musculoskeltal Medical History: Denies Hx Arthritis Psychiatric Medical History: Denies: Hx Depression Past Surgical History: Reports: Hx Rectal Surgery - fistulectomy, Other - Rectal fistula repair recent fistula plug in - Immunizations Hx Diphtheria, Pertussis, Tetanus Vaccination: No Physical Exam - Vital signs Vitals: Temp Pulse Resp BP Pulse Ox 99 F 82 18 150/85 H 96 10/09/19 17:01 10/09/19 17:01 10/09/19 17:01 10/09/19 17:01 10/09/19 17:01 Course - Vital Signs Vital signs: Temp Pulse Resp BP Pulse Ox 99 F 82 18 150/85 H 96 10/09/19 17:01 10/09/19 17:01 10/09/19 17:01 10/09/19 17:01 10/09/19 17:01 Doctor's Discharge - Discharge Referrals: MARAL ESPINOSA MD [Primary Care Provider] - Follow up as needed
== END 2019-10-09 22:13 | disposition left against medical advice (07) ==
LOC: ER 16:54
DX: G89.18 Other acute postprocedural pain (principal); Z53.20 Procedure and treatment not carried out because of patient's decision for unspecified reasons
CPT/HCPCS: 99281

== ENCOUNTER 2019-10-11 16:30 | Emergency (ER) | payer MEDICAID ==
[2019-10-11 16:57] LABS: ABSOLUTE EOSINOPHILS # (AUTO) 0.2 10^3/uL (0.0-0.6); ABSOLUTE LYMPHOCYTES (AUTO) 2.2 10^3/uL (0.5-4.7); ABSOLUTE MONOCYTES (AUTO) 0.7 10^3/uL (0.1-1.4); BASOPHILS % (AUTO) 0.4 % (0-2); EOSINOPHILS % (AUTO) 1.9 % (0-6); HEMATOCRIT 39.9 % (37.9-51.0); HEMOGLOBIN 14.1 g/dL (13.5-17.0); LYMPHOCYTES % (AUTO) 24.3 % (13-45); MEAN CORPUSCULAR HEMOGLOBIN 30.5 pg (27.0-33.4); MEAN CORPUSCULAR HGB CONC 35.2 g/dL (32.0-36.0); MEAN CORPUSCULAR VOLUME 87 fl (80-97); MONOCYTES % (AUTO) 7.3 % (3-13); PLATELET COUNT 297 10^3/uL (150-450); RED BLOOD COUNT 4.61 10^6/uL (4.35-5.55); RED CELL DISTRIBUTION WIDTH 12.2 % (11.5-14.0); SEGMENTED NEUTROPHILS % (AUTO) 66.1 % (42-78); TOTAL CELLS COUNTED % (AUTO) 100 %; WHITE BLOOD COUNT 9.1 10^3/uL (4.0-10.5)
[2019-10-11 17:15] LABS: ALBUMIN 4.3 g/dL (3.5-5.0); ALKALINE PHOSPHATASE 90 U/L (38-126); ANION GAP 11 (5-19); ASPARTATE AMINO TRANSFERASE 31 U/L (17-59); BILIRUBIN,DIRECT 0.1 mg/dL (0.0-0.4); BILIRUBIN,TOTAL 0.7 mg/dL (0.2-1.3); BLOOD UREA NITROGEN 16 mg/dL (7-20); CARBON DIOXIDE 25 mmol/L (22-30); CHLORIDE 104 mmol/L (98-107); GLUCOSE 131 mg/dL (75-110); POTASSIUM 4.4 mmol/L (3.6-5.0); TOTAL PROTEIN 7.6 g/dL (6.3-8.2)
[2019-10-11] MEDS ORDERED: ONDANSETRON HCL INJ/PF 4 MG/2 ML SDV IV ONE (18:17)
[2019-10-11] MEDS ORDERED: HYDROMORPHONE HCL INJ/PF 2 MG/ML AMPULE IV ONE (18:17)
--- NOTE | 2019-10-11 18:31 | ER Document Report ---
Entered by JOHN MARMOLEJO SCRIBE 10/11/191813 Acting as scribe for:JACKSON ROJAS DO ED General - General Chief Complaint: Rectal Pain Stated Complaint: POST OP COMPLICATIONS Time Seen by Provider: 10/11/19 18:01 Primary Care Provider: HERMELINDO ALAVRADO MD [ACTIVE STAFF] - 10/15/19 MARAL ESPINOSA MD [Primary Care Provider] - Follow up as needed Mode of Arrival: Medic Information source: Patient Notes: This 44 year old male patient brought in by EMS presents to the ED today with complaints of worsening postoperative pain related to a rectal fistula repair that was done on 10/02/[address] Hardwick in [place], [place]. Patient states that this is his third visit in the past x5 days with the same complaint and the pain has not gotten any better. He describes the pain as a burning sensation that worsens after bowel movements. He reports that he saw the surgeon yesterday and was told that his symptoms are normal and would take some time to resolve. He was prescribed pain medications, which he states provides mild relief, and has a follow up appointment in x3 weeks. He also expresses concerns about his bowel movements draining out of the fistula area and not his anus. He notes that he has had a total of x17 surgeries for this issue within the past x6 years and has had to change surgeons x6 times. Denies fever or nausea. TRAVEL OUTSIDE OF THE [place] 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 Home Medications: Percocet Past Medical History - General Information source: Patient - Social History Smoking Status: Never Smoker Cigarette use (# per day): No Chew tobacco use (# tins/day): No Smoking Education Provided: No Frequency of alcohol use: None Drug Abuse: None Family History: Reviewed & Not Pertinent Patient has suicidal ideation: No Patient has homicidal ideation: No GI Medical History: Reports: Hx Colonoscopy Past Surgical History: Reports: Hx Rectal Surgery - fistulectomy, Other - Rectal fistula repair recent fistula plug in - Immunizations Hx Diphtheria, Pertussis, Tetanus Vaccination: No Review of Systems - Review of Systems Constitutional: See HPI. denies: Fever EENT: No symptoms reported Cardiovascular: No symptoms reported Respiratory: No symptoms reported Gastrointestinal: See HPI, Other - Rectal pain. denies: Nausea Genitourinary: No symptoms reported Male Genitourinary: No symptoms reported Musculoskeletal: No symptoms reported Skin: No symptoms reported Hematologic/Lymphatic: No symptoms reported Neurological/Psychological: No symptoms reported -: Yes All other systems reviewed and negative Physical Exam - Vital signs Vitals: Temp 99.2 F 10/11/19 16:30 - General General appearance: Alert In distress: None - HEENT Head: Normocephalic, Atraumatic Eyes: Normal Extraocular movements intact: Yes Pupils: PERRL - Respiratory Respiratory status: No respiratory distress Chest status: Nontender Breath sounds: Normal Chest palpation: Normal - Cardiovascular Rhythm: Regular Heart sounds: Normal auscultation Murmur: No Friction rub: No Gallop: None auscultated - Abdominal Inspection: Obese Distension: No distension Bowel sounds: Normal Tenderness: Nontender - Abdomen soft Organomegaly: No organomegaly - Rectal Notes: 6 cm wound that extends laterally from the anus to the left buttocks with stool in the area - Back Back: Normal, Nontender - Extremities General upper extremity: Normal inspection General lower extremity: Normal inspection. No: Edema - Neurological Neuro grossly intact: Yes Cognition: Normal Orientation: AAOx4 Octavio Coma Scale Eye Opening: Spontaneous Octavio Coma Scale Verbal: Oriented [place] Coma Scale Motor: Obeys Commands [place] Coma Scale Total: 15 - Psychological Associated symptoms: Normal affect, Normal mood - Skin Skin Temperature: Warm Skin Moisture: Dry Skin Color: Normal Course - Re-evaluation Re-evalutation: 10/11/19 18:46 MDM 44 year old male with at least 17 previous rectal surgeries for perirectal fistula. Unhappy with the results of most recent surgery in [place]. Apparently followed up yesterday and was given percocett Rx. Due to follow up again 10/28. He tells me it acosta with passing flatus and stool which comes out a perirectal area on his left buttocks. There is a granulating wound there without fluctuence or signs of infection. I have discussed the pt with Dr. Soria and he reccomends pt follow up locally with Dr. Coburn the first of nest week. I have relayed this to the pt. He has no need at this time for repeat imaging of his pelvis and being exposed to radiation again. - Vital Signs Vital signs: Temp Pulse Resp BP Pulse Ox 99.2 F 91 18 126/81 H 98 10/11/19 16:48 10/11/19 16:48 10/11/19 18:25 10/11/19 18:25 10/11/19 16:48 - Laboratory Result Diagrams: 10/11/19 16:40 10/11/19 16:40 Laboratory results interpreted by me: 10/11/19 10/11/19 16:40 18:00 Glucose 131 H Urine Protein 30 H Urine Urobilinogen 2.0 H - Diagnostic Test Radiology reviewed: Reports reviewed Discharge - Discharge Clinical Impression: Rectal fistula, Post-op pain Condition: Stable Disposition: HOME, SELF-CARE Additional Instructions: Call Dr. Alvarado Tuesday for follow up next week. Take the pain medicine as we discussed. Please return here for fever, increasing pain or other problems or any other concerns. Take the percocet you have twice a day regularly for pain. Referrals: MARAL ESPINOSA MD [Primary Care Provider] - Follow up as needed HERMELINDO ALVARADO MD [ACTIVE STAFF] - 10/15/19 I personally performed the services described in the documentation, reviewed and edited the documentation which was dictated to the scribe in my presence, and it accurately records my words and actions.
[2019-10-11 18:52] LABS: APPEARANCE,URINE CLEAR; BILIRUBIN,URINE NEGATIVE (NEGATIVE); COLOR,URINE YELLOW; GLUCOSE, URINE NEGATIVE (NEGATIVE); KETONES,URINE NEGATIVE (NEGATIVE); LEUKOCYTE ESTERASE,URINE NEGATIVE (NEGATIVE); NITRITE,URINE NEGATIVE (NEGATIVE); PROTEIN,URINE 30 mg/dL (NEGATIVE); URINE SPECIFIC GRAVITY 1.024
[2019-10-11 19:08] LABS: ADD MANUAL MICROSCOPIC YES; WBC,URINE 0-1 /HPF
[2019-10-11 19:09] LABS: AMORPHOUS SEDIMENT,UR TRACE
[2019-10-11 19:45] VITALS: BP 117/55
== END 2019-10-11 19:35 | disposition home or self-care (01) ==
LOC: ER 16:30
DX: K60.4 Rectal fistula (principal); K62.89 Other specified diseases of anus and rectum; G89.18 Other acute postprocedural pain
CPT/HCPCS: 99284; 96374; 96375; 36415; 83605; 83690; 85025; 80053; 81001; J1170; J2405

== ENCOUNTER 2019-12-23 13:51 | Emergency (ER) | payer MEDICAID ==
[2019-12-23 13:55] VITALS: BP 161/81
--- NOTE | 2019-12-23 14:31 | ER Document Report ---
ED General - General Chief Complaint: Cold Symptoms Stated Complaint: COUGH Time Seen by Provider: 12/23/19 14:15 Primary Care Provider: MARAL ESPINOSA MD [Primary Care Provider] - Follow up as needed Mode of Arrival: Ambulatory Information source: Patient Notes: Patient is a 44-year-old gentleman coming in today with a bad cough for about a week. His nasal and sinus congestion as well. He does not have body aches. He does not have fevers and shaking chills. Does not have any malaise or weakness. Does not have loss of taste or smell. Not have any chronic medical problems. Does not have any lung disease. TRAVEL OUTSIDE OF THE [place] 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 Magnesium. Nyquil/Dayquil. Mucinex Past Medical History - Social History Smoking Status: Never Smoker Chew tobacco use (# tins/day): No Frequency of alcohol use: None Drug Abuse: None Family History: Reviewed & Not Pertinent Patient has homicidal ideation: No - Past Medical History Cardiac Medical History: Denies: Hx Coronary Artery Disease, Hx Heart Attack, Hx Hypertension Pulmonary Medical History: Denies: Hx Asthma, Hx Bronchitis, Hx COPD, Hx Pneumonia Neurological Medical History: Denies: Hx Cerebrovascular Accident, Hx Seizures Endocrine Medical History: Denies: Hx Diabetes Mellitus Type 2 Renal/ Medical History: Denies: Hx Peritoneal Dialysis GI Medical History: Reports: Hx Colonoscopy. Denies: Hx Crohn's Disease Musculoskeletal Medical History: Denies Hx Arthritis Psychiatric Medical History: Denies: Hx Depression Past Surgical History: Reports: Hx Rectal Surgery - fistulectomy, Other - Rectal fistula repair recent fistula plug in - Immunizations Hx Diphtheria, Pertussis, Tetanus Vaccination: No Review of Systems - Review of Systems Notes: Constitutional: No fevers. No chills. EENT: No eye redness. No eye pain. No ear pain. No sore throat. Cardiovascular: No chest pain. No palpitations. Respiratory: +cough. No shortness of breath. No respiratory distress. Gastrointestinal: No abdominal pain. No nausea, vomiting, or diarrhea. Genitourinary: Atraumatic. No lesions. No pain. No discharge. Musculoskeletal: Atraumatic. No swelling. No deformities. Skin: No rash or lesions. Lymphatic: No swollen lymph nodes. Neurologic: No headache. No syncope. Psychiatric: No suicidal or homicidal ideation. Physical Exam - Vital signs Vitals: Temp Pulse Resp BP Pulse Ox 97.9 F 87 16 161/81 H 97 12/23/19 13:54 12/23/19 13:54 12/23/19 13:54 12/23/19 13:54 12/23/19 13:54 - Notes Notes: General: Well-developed, well-nourished. In no acute distress. Non-toxic appearing. Cardiac: Well-perfused. Regular rate and rhythm. No murmurs, rubs, or gallops. Pulmonary: No respiratory distress. No cyanosis. Bilateral lung root are clear to auscultation. Abdominal: Non-distended. Non-rigid. Bowels sounds are present in all four quadrants. No guarding or rebound. HEENT: Head is atraumatic. Conjunctivae not reddened. No tearing. PERRL. EOMI. Orbits atraumatic. No periorbital swelling or erythema. Oropharynx is without erythema, swelling, or exudates. Neck: Supple. No adenopathy. No meningismus. Dermatologic: Warm with good turgor. No rash. Atraumatic. Chest: Atraumatic. No chest wall tenderness to palpation. Musculoskeletal: Moves all extremities well. No range of motion deficits. no muscular or joint tenderness. No paraspinal muscle tenderness. no midline spinal tenderness or step-off. Genitourinary: Examination deferred Neurologic: No gross neurologic deficits. Psychiatric: Normal mood. Course - Re-evaluation Re-evalutation: 12/23/19 14:29 Patient's exam is normal. His vital signs are normal. Auscultating his lungs does not sound like there is any pneumonia. Given that he does not have a fever, I do not think a chest x-ray is indicated at this time. I did explain to the patient why I do not think it is necessary. I will however start him on Zithromax, albuterol inhaler, and Hycodan cough syrup. He is advised to return here if his symptoms are worsening instead of improving. He is amenable to the plan proposed. He has reliable follow-up with Dr. Espinosa. - Vital Signs Vital signs: Temp Pulse Resp BP Pulse Ox 97.9 F 87 16 161/81 H 97 12/23/19 13:54 12/23/19 13:54 12/23/19 13:54 12/23/19 13:54 12/23/19 13:54 Discharge - Discharge Clinical Impression: Elevated blood pressure reading Upper respiratory infection Qualifiers: URI type: unspecified URI Qualified Code(s): J06.9 - Acute upper respiratory infection, unspecified Condition: Good Disposition: HOME, SELF-CARE Instructions: COVID-19 Guidance for Persons Under Investigation, Upper Respiratory Illness ([facility]) Additional Instructions: I do not think that you need a chest x-ray at this time. We will give you the appropriate medications. If your symptoms get worse, you need to return back to the emergency department or see your primary care provider. Please maintain a quarantine until you find out the results of your coronavirus testing. Prescriptions: Hydrocodone Bit/Homatropine [Hycodan Syrup 5-1.5 mg/5 ml Ud Cup] 5 ml PO Q6HP PRN #120 ml PRN Reason: Albuterol Sulfate [Proair HFA Inhalation Aerosol 8.5 gm MDI] 2 puff IH Q4H PRN #1 mdi PRN Reason: Azithromycin [Zithromax 250 mg Tablet] 250 mg PO ASDIR PRN #6 tablet PRN Reason: Referrals: MARAL ESPINOSA MD [Primary Care Provider] - Follow up as needed
== END 2019-12-23 14:44 | disposition home or self-care (01) ==
LOC: ER 13:51
DX: J06.9 Acute upper respiratory infection, unspecified (principal); R03.0 Elevated blood-pressure reading, without diagnosis of hypertension; Z87.892 Personal history of anaphylaxis; Z91.013 Allergy to seafood; Z79.899 Other long term (current) drug therapy; Z20.828 Contact with and (suspected) exposure to other viral communicable diseases
CPT/HCPCS: 99283; 87635; C9803